=== PATIENT | female | born 1985 | race Caucasian/White ===

== ENCOUNTER 2017-04-05 17:46 | Emergency (ER) | payer OTHER ==
[~2017-04-05] VITALS: Ht 160 cm; Wt 58.0 kg
[2017-04-05 18:00] VITALS: BP 145/94; PULSE 84; TEMP 37; O2SAT 100; Ht 160 cm; Wt 58.0 kg
[2017-04-05] MEDS ORDERED: RABIES VACCINE (IMOVAX) HUMAN DIPL CELL 2.5 INTER.UNIT/ML SYR IM. ONE (18:15)
--- NOTE | 2017-04-05 18:16 | EMERGENCY ROOM VISIT NOTE ---
History Report prepared by Wade: Donta Greene Under the Supervision of: Dr. Alfredo Milner M.D. First contact with patient: 18:08 Chief Complaint: RABIES VACCINE Stated Complaint: EXPOSED TO RABID CAT History of Present Illness The patient is a 31 year old female who presents to the Emergency Room with a request for a rabies vaccination. 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 Today, she was working with a feral cat who was about to be adopted when she noticed that the cat was acting very strangely. She believed that the cat was suffering from symptoms of rabies. Upon euthanatizing the cat, it being rolling around and ended up scratching the patient. She has received a three series rabies vaccination in the past, but presents today to make sure she is immunized. Source of History: patient Onset: today Position: arm (bilateral) Symptom Intensity: mild Quality: other (Cat scratch) Timing: constant Note: She denies any other complaints. Review of Systems See HPI for pertinent positives & negatives. A total of 10 systems reviewed and were otherwise negative. Past Medical & Surgical No past medical history Family History Patient reports no known family medical history. Social History Smoking Status: Never Smoker Smokeless Tobacco Use: No Drug Use: none Occupation Status: employed Current/Historical Medications Scheduled Control Pills ( Control Pills), 1 TAB PO DAILY Cetirizine (Zyrtec), 10 MG PO QAM Fluticasone Propionate (Nasal) (Flonase Allergy Relief), 1 SPRAY NA DAILY Topiramate (Topamax), 50 MG PO DAILY Allergies Coded Allergies: Gabapentin (Unverified Allergy, Unknown, RASH, 04/05/17) Iodinated Diagnostic Agents (Unverified Allergy, Unknown, RASH, 04/05/17) Sulfa Antibiotics (Unverified Allergy, Unknown, RASH, 04/05/17) Physical Exam Vital Signs Date Time Temp Pulse Resp B/P (MAP) Pulse Ox O2 Delivery O2 Flow Rate FiO2 04/05/17 18:00 37.0 84 18 145/94 100 Physical Exam GENERAL: Patient is a healthy-appearing well-nourished female HEAD: Normocephalic atraumatic EYES: Ocular movements intact pupils equal and react to light OROPHARYNX mucous membranes are moist no exudates present no erythema or edema present NECK: Supple no nuchal rigidity CHEST: Good equal expansion LUNGS: Clear and equal to auscultation CARDIAC: Normal S1 and S2 ABDOMEN: Soft nontender no guarding BACK: No CVA tenderness EXTREMITIES: No pain upon palpation normal muscle strength in all groups no clubbing cyanosis or edema NEURO: Patient is following commands and answering questions appropriately. Alert and oriented x3 Cranial Nerves 2-12 grossly intact Medical Decision & Procedures Medications Administered Medications (Trade) Dose Ordered Sig/Kei Route Start Time Stop Time Status Last Admin Dose Admin Rabies Vaccine Human Diploid Cell (Imovax Rabies) 2.5 interunit ONCE ONCE IM. 04/05/17 18:15 04/05/17 18:16 DC 04/05/17 18:24 2.5 INTERUNIT ED Course 1807: Past medical records reviewed. The patient was evaluated in room A6. A complete history and physical examination was performed. 1814: Ordered Imovax Rabies 2.5 interunit IM 1829: Upon reexamination the patient is resting. I discussed results and treatment plan with the patient. She verbalizes agreement and understanding. The patient is ready for discharge. Medical Decision This is a 31-year-old female who presents emergency department after being scratched by a rabid cat. The wound was cleaned with soap and water. She was given Rabies Vaccine. She already has a rabies titer drawn that is appropriate. For this reason she will only need the rabies vaccine on days 0 and 3. Patient will return on day 3 and was in agreement with the treatment plan. Medication Reconcilliation Current Medication List: was personally reviewed by me Blood Pressure Screening Patient's blood pressure: Elevated blood pressure Blood pressure disposition: Elevated BP felt to be situational Impression Primary Impression: Need for rabies vaccination Scribe Attestation The scribe's documentation has been prepared under my direction and personally reviewed by me in its entirety. I confirm that the note above accurately reflects all work, treatment, procedures, and medical decision making performed by me. Departure Information Dispostion Home / Self-Care Referrals Jass Reno M.D.(MAX[facility]) Forms HOME CARE DOCUMENTATION FORM, IMPORTANT VISIT INFORMATION, WORK / SCHOOL INSTRUCTIONS Patient Instructions My [facility] Additional Instructions Today is Day 0, Return on Day 3 for additional Vaccine
[2017-04-05] MEDS ORDERED: FLUT0.15 (18:18)
[2017-04-05] MEDS ORDERED: TOPI50TA16 PO (18:18)
[2017-04-05] MEDS ORDERED: BCPILLS PO (18:18)
[2017-04-05] MEDS ORDERED: CETI10TA84 PO (18:18)
== END 2017-04-05 18:39 | disposition home or self-care (01) ==
LOC: C.EDB 17:48 → C.EDA 18:39
DX: Z23 Encounter for immunization (principal); Z20.3 Contact with and (suspected) exposure to rabies

== ENCOUNTER 2017-04-08 13:46 | Emergency (ER) | payer OTHER ==
[~2017-04-08] VITALS: Ht 160 cm; Wt 67.5 kg
[~2017-04-08 13:46] MED LIST: BCPILLS PO; CETI10TA84 PO; FLUT0.15; TOPI50TA16 PO
[2017-04-08 13:51] VITALS: TEMP 37.1; Ht 160 cm; Wt 67.5 kg
[2017-04-08] MEDS ORDERED: RABIES VACCINE (IMOVAX) HUMAN DIPL CELL 2.5 INTER.UNIT/ML SYR IM. ONE (14:00)
--- NOTE | 2017-04-08 14:32 | EMERGENCY ROOM VISIT NOTE ---
ED Visit Note First contact with patient: 13:56 Chief Complaint: Rabies Return Visit History of Present Illness: This patient is a 31-year-old female who presents to the Emergency Department for their final Rabies Vaccination Injections. The patient reports that they had no reaction to previous injection. Patient denies the development of any fevers, chills, sweats, or URI symptoms. Medications: Unchanged from previous visit. Allergies: Reviewed in chart PMH: Unchanged from previous visit. SHx: Lives at home. Denies tobacco, alcohol, recreational drug use. ROS: All pertinent positive and negative review of systems are appropriately documented in the History of Present Illness. Physical Exam: VITAL SIGNS - Vital signs and Nursing Notes were reviewed. GENERAL -pleasant and cooperative, well-developed, well-nourished, and in no acute distress. SKIN - Without rashes or lesions. CARDIAC - RRR with normal S1 & S2. No murmurs, rubs, or gallops appreciated. RESPIRATORY - Clear to auscultation bilaterally. No wheezes, rales, or rhonchi appreciated. NEURO - Patient is A&Ox3 and communicates appropriately with the provider. ED Course: Previous ED visit note was reviewed by myself prior to patient evaluation. Patient reports no reaction to the previous injection(s). Patient received Imovax intramuscularly. Patient was observed in the Emergency Department for greater than 20 minutes prior to discharge without signs of reaction. Patient was educated on worrisome symptoms for return visit to the Emergency Department. Patient discharged to home with the intent for follow-up in the Emergency Department as scheduled for the remainder of their injections. Current/Historical Medications Scheduled Control Pills ( Control Pills), 1 TAB PO DAILY Cetirizine (Zyrtec), 10 MG PO QAM Fluticasone Propionate (Nasal) (Flonase Allergy Relief), 1 SPRAY NA DAILY Topiramate (Topamax), 50 MG PO DAILY Allergies Coded Allergies: Gabapentin (Unverified Allergy, Unknown, RASH, 04/08/17) Iodinated Diagnostic Agents (Unverified Allergy, Unknown, RASH, 04/08/17) Sulfa Antibiotics (Unverified Allergy, Unknown, RASH, 04/08/17) Vital Signs Date Time Temp Pulse Resp B/P (MAP) Pulse Ox O2 Delivery O2 Flow Rate FiO2 04/08/17 14:40 81 16 121/72 100 04/08/17 13:51 37.1 91 15 118/81 98 Room Air Medications Administered Medications (Trade) Dose Ordered Sig/Kei Route Start Time Stop Time Status Last Admin Dose Admin Rabies Vaccine Human Diploid Cell (Imovax Rabies) 2.5 interunit ONCE ONCE IM. 04/08/17 14:00 04/08/17 14:01 DC 04/08/17 14:03 2.5 INTERUNIT Departure Information Impression Primary Impression: Encounter for repeat administration of rabies vaccination Dispostion Home / Self-Care Condition GOOD Referrals Jass Reno M.D.(MAXI) (PCP) Patient Instructions My [facility] Additional Instructions You were seen in the Emergency Department today for completion of your Rabies Prophylaxis. Follow-up with your PCP as needed.
[2017-04-08 14:40] VITALS: BP 121/72; PULSE 81; O2SAT 100
== END 2017-04-08 14:41 | disposition home or self-care (01) ==
LOC: C.EDB 13:47 → C.EDD 14:41
DX: Z20.3 Contact with and (suspected) exposure to rabies (principal); Z23 Encounter for immunization

== ENCOUNTER 2017-10-14 19:41 | Emergency (ER) | payer OTHER ==
[~2017-10-14] VITALS: Ht 160 cm; Wt 58.2 kg
[2017-10-14 19:46] VITALS: TEMP 37.4; Ht 160 cm; Wt 58.2 kg
--- NOTE | 2017-10-14 21:07 | EMERGENCY ROOM VISIT NOTE ---
History Report prepared by Wade: Reed Calero Under the Supervision of: Dr. Lu Serra D.O. First contact with patient: 20:51 Chief Complaint: ABDOMINAL PAIN Stated Complaint: SEVERE STOMACH PAIN Nursing Triage Summary: pt c/o abd pain for past 2 days, used mag citrate yesterday, started with low grade fever last night then vomited this morning History of Present Illness The patient is a 31 year old female who presents to the Emergency Room with complaints of waxing and waning, sharp, center abdominal pain beginning yesterday at 0300. The patient states that she felt bloated and felt like she was constipated when her symptoms began. She notes that she took magnesium citrate with some relief of her symptoms. She reports that her bloating is better but that she is still experiencing abdominal pain. She also complains of nausea, vomiting, and a low grade fever that reached a high of 100. The patient states that her symptoms worsen with movement and eating. She notes that she is not able to pass any gas but can hear "gurgling in her stomach when she moves." She denies any urinary symptoms, recent travel, and changes to her menstrual periods as she has an IUD placed. She reports that she does not have a history of GI problems but states that her dad has a history of diverticulitis. Source of History: patient Onset: yesterday at 0300 Position: abdomen Quality: sharp, other (bloating) Timing: waxes/wanes Modifying Factors (Worsening): eating, movement Modifying Factors (Relieving): other (magnesium citrate) Associated Symptoms: + fevers (high of 100), + nausea, + vomiting, No urinary symptoms Review of Systems See HPI for pertinent positives & negatives. A total of 10 systems reviewed and were otherwise negative. Past Medical & Surgical Medical Problems: (1) Scoliosis Social History Problems: (1) IUD (intrauterine device) in place Family History FHx: cancer FHx: diverticulitis Heart disease Hypertension Social History Smoking Status: Never Smoker Drug Use: none Marital Status: Housing Status: lives with family Occupation Status: employed Current/Historical Medications Scheduled Control Pills ( Control Pills), 1 TAB PO DAILY Cetirizine (Zyrtec), 10 MG PO QAM Dicyclomine Hcl (Bentyl), 20 MG PO Q8 Escitalopram Oxalate (Lexapro), 20 MG PO DAILY Ondasetron Odt (Zofran Odt), 4 MG SL Q8 Topiramate (Topamax), 50 MG PO DAILY Allergies Coded Allergies: Gabapentin (Unverified Allergy, Unknown, RASH, 10/15/17) Iodinated Diagnostic Agents (Unverified Allergy, Unknown, RASH, 10/15/17) Sulfa Antibiotics (Unverified Allergy, Unknown, RASH, 10/15/17) Uncoded Allergies: AJ (Allergy, Unknown, rash, 10/14/17) Physical Exam Vital Signs Date Time Temp Pulse Resp B/P (MAP) Pulse Ox O2 Delivery O2 Flow Rate FiO2 10/15/17 01:01 80 18 114/63 98 Room Air 10/14/17 23:37 99 18 130/95 96 Room Air 10/14/17 22:30 73 15 117/95 100 Room Air 10/14/17 22:00 74 16 124/86 99 Room Air 10/14/17 21:31 114/86 10/14/17 21:30 93 16 99 Room Air 10/14/17 21:30 84 10/14/17 21:19 75 16 114/86 100 Room Air 10/14/17 19:46 37.4 118 18 136/85 99 Room Air Physical Exam GENERAL: alert, well appearing, well nourished, no distress, non-toxic EYE EXAM: normal conjunctiva, PERRL and EOM's grossly intact OROPHARYNX: no exudate, no erythema, lips, buccal mucosa, and tongue normal and mucous membranes are moist NECK: supple, no nuchal rigidity, no adenopathy, non-tender LUNGS: Clear to auscultation. Normal chest wall mechanics HEART: no murmurs, S1 normal and S2 normal ABDOMEN: abdomen soft, normo-active bowel sounds, no masses, no rebound or guarding, mild periumbilical tenderness. BACK: Back is symmetrical on inspection and there is no deformity, no midline tenderness, no CVA tenderness. SKIN: no rashes and no bruising UPPER EXTREMITIES: upper extremities are grossly normal. LOWER EXTREMITIES: No pitting edema. NEURO EXAM: Normal sensorium, cranial nerves II-XII grossly intact, normal speech, no gross weakness of arms, no gross weakness of legs. Medical Decision & Procedures ER Provider Diagnostic Interpretation: Radiology results have been interpreted by the radiologist and reviewed by me. ABDOMEN 2VIEW W/PA CHEST RTN FINDINGS: Surgical clips project over the lower thorax. Cardiomediastinal silhouette normal. No focal opacity. No large effusion or pneumothorax. Mild focal colonic wall thickening suggested at the level of the distal descending colon. Nonobstructive bowel gas pattern. No gross pneumoperitoneum. Allowing for bowel gas and stool, no calcifications to suggest nephrolithiasis. Intrauterine device in place. Extensive thoracolumbar fusion hardware. Scoliotic curvature of the thoracolumbar spine. Absent or gracile right sixth rib. IMPRESSION: 1. No acute cardiopulmonary disease. 2. Focal wall thickening suggested at the distal descending colon. This could suggest colitis. This could be further evaluated with CT if clinically indicated. Electronically signed by: Kiran Mendoza M.D. 10/14/2017 9:[address] ABDOMEN & PELVIS Without Contrast: Impression: Enlarged right kidney with hydronephrosis, potentially secondary to a punctate right distal ureteral stone. However, evaluation is degraded by extensive streak artifact related to spinal hardware and noncontrast technique. The appendix is not clearly delineated. No evidence of bowel obstruction. Findings: Extensive streak artifact related to spinal hardware. There is a questionable right distal ureteral punctate stone versus phlebolith ( image 69). Uterine contraceptive device. No evidence of bowel obstruction. The appendix is clearly delineated. No acute osseous abnormality. Laboratory Results 10/14/17 21:19 Red Blood Count 4.73, Mean Corpuscular Volume 85.4, Mean Corpuscular Hemoglobin 30.0, Mean Corpuscular Hemoglobin Concent 35.1, Mean Platelet Volume 9.8, Neutrophils (%) (Auto) 75.1, Lymphocytes (%) (Auto) 16.5, Monocytes (%) (Auto) 7.9, Eosinophils (%) (Auto) 0.1, Basophils (%) (Auto) 0.1, Neutrophils # (Auto) 7.98, Lymphocytes # (Auto) 1.75, Monocytes # (Auto) 0.84, Eosinophils # (Auto) 0.01, Basophils # (Auto) 0.01 10/14/17 21:19 Test 10/14/17 21:19 White Blood Count 10.62 K/uL (4.8-10.8) Red Blood Count 4.73 M/uL (4.2-5.4) Hemoglobin 14.2 g/dL (12.0-16.0) Hematocrit 40.4 % (37-47) Mean Corpuscular Volume 85.4 fL (80-100) Mean Corpuscular Hemoglobin 30.0 pg (25-34) Mean Corpuscular Hemoglobin Concent 35.1 g/dl (32-36) Platelet Count 229 K/uL (130-400) Mean Platelet Volume 9.8 fL (7.4-10.4) Neutrophils (%) (Auto) 75.1 % Lymphocytes (%) (Auto) 16.5 % Monocytes (%) (Auto) 7.9 % Eosinophils (%) (Auto) 0.1 % Basophils (%) (Auto) 0.1 % Neutrophils # (Auto) 7.98 K/uL (1.4-6.5) Lymphocytes # (Auto) 1.75 K/uL (1.2-3.4) Monocytes # (Auto) 0.84 K/uL (0.11-0.59) Eosinophils # (Auto) 0.01 K/uL (0-0.5) Basophils # (Auto) 0.01 K/uL (0-0.2) RDW Standard Deviation 37.0 fL (36.4-46.3) RDW Coefficient of Variation 11.9 % (11.5-14.5) Immature Granulocyte % (Auto) 0.3 % Immature Granulocyte # (Auto) 0.03 K/uL (0.00-0.02) Urine Color DK YELLOW Urine Appearance CLOUDY (CLEAR) Urine pH 5.5 (4.5-7.5) Urine Specific [place] 1.025 (1.000-1.030) Urine Protein NEG (NEG) Urine Glucose (UA) NEG (NEG) Urine Ketones 3+ (NEG) Urine Occult Blood 2+ (NEG) Urine Nitrite NEG (NEG) Urine Bilirubin NEG (NEG) Urine Urobilinogen NEG (NEG) Urine Leukocyte Esterase SMALL (NEG) Urine WBC (Auto) 10-30 /hpf (0-5) Urine RBC (Auto) 10-30 /hpf (0-4) Urine Hyaline Casts (Auto) 5-10 /lpf (0-5) Urine Epithelial Cells (Auto) >30 /lpf (0-5) Urine Bacteria (Auto) 1+ (NEG) Anion Gap 9.0 mmol/L (3-11) Est Creatinine Clear Calc Drug Dose 46.1 ml/min Estimated GFR () 55.1 Estimated GFR (Non- 47.5 BUN/Creatinine Ratio 12.1 (10-20) Calcium Level 9.0 mg/dl (8.5-10.1) Magnesium Level 2.4 mg/dl (1.8-2.4) Total Bilirubin 1.2 mg/dl (0.2-1) Aspartate Amino Transf (AST/SGOT) 20 U/L (15-37) Alanine Aminotransferase (ALT/SGPT) 31 U/L (12-78) Alkaline Phosphatase 82 U/L (45-117) Total Protein 7.7 gm/dl (6.4-8.2) Albumin 4.3 gm/dl (3.4-5.0) Globulin 3.4 gm/dl (2.5-4.0) Albumin/Globulin Ratio 1.3 (0.9-2) Lipase 66 U/L (73-393) Human Chorionic Gonadotropin, Qual NEG (NEG) Laboratory results per my review. Medications Administered Medications (Trade) Dose Ordered Sig/Kei Route Start Time Stop Time Status Last Admin Dose Admin Ketorolac Tromethamine (Toradol Inj) 30 mg NOW STAT IV 10/14/17 23:49 10/14/17 23:50 DC 10/14/17 23:53 30 MG Ondansetron HCl (ZOFRAN ODT 4MG Home Pack) 1 homepack UD ONCE PO 10/15/17 01:30 10/15/17 01:31 DC 10/15/17 01:32 1 HOMEPACK ED Course 2100: The patient was evaluated in room B12. A complete history and physical exam was performed. 2314: I reevaluated and updated the patient. 2349: Toradol 30mg IV 0037: I rechecked the patient. 0113: Upon reevaluation, the patient is feeling better. I discussed the findings and the treatment plan with the patient. She verbalizes agreement and understanding. The patient was discharged home. Medical Decision Differential diagnosis: Etiologies such as appendicitis, diverticulitis, PUD, biliary pathology, UTI, pancreatitis, obstruction, mesenteric ischemia, aortic pathology, infections, inflammatory bowel disease, renal colic, as well as others were entertained. Discussed with patient all results here. Patient with no vomiting or diarrhea while here. Patient afebrile. Patient's labs reassuring. Discussed imaging results with her as well as suggestion of possible stone. While patient's presentation not classic for ureterolithiasis or renal colic, given hematuria, discussed with patient that that is still a possibility. Patient with no prior history of kidney stones. Patient has an IUD and does not get regular menstrual cycles but has not noted any recent spotting to suggest vaginal contaminant of her urinalysis specimen. Specimen otherwise does not appear infected. I do not suspect other infection. Patient specimen was suboptimal. Patient with mild renal dysfunction noted compared to prior, discussed close follow-up with family doctor to have this rechecked and continued hydration. Patient well-appearing here throughout, vital signs stable. Patient felt improved following medication. Discussed with her symptoms to watch and return for, symptomatic treatment, close follow-up with family doctor as a precaution, she verbalized understanding was agreeable with plan. Medication Reconcilliation Current Medication List: was personally reviewed by me Blood Pressure Screening Patient's blood pressure: Normal blood pressure Blood pressure disposition: Did not require urgent referral Impression Primary Impression: Abdominal pain Additional Impression: Hematuria Scribe Attestation The scribe's documentation has been prepared under my direction and personally reviewed by me in its entirety. I confirm that the note above accurately reflects all work, treatment, procedures, and medical decision making performed by me. Departure Information Dispostion Home / Self-Care Prescriptions Dicyclomine Hcl (BENTYL) 10 Mg Cap 20 MG PO Q8 for Pain, #30 CAP Prov: Lu Serra, DO 10/15/17 Ondasetron Odt (ZOFRAN ODT) 4 Mg Tab 4 MG SL Q8 for Nausea, #20 TAB Prov: Lu Serra, DO 10/15/17 Referrals Jass Reno M.D.(MAXI) (PCP) Forms Call Back Authorization, HOME CARE DOCUMENTATION FORM, IMPORTANT VISIT INFORMATION Patient Instructions My [facility] Additional Instructions Please sip clear liquids and frequent intervals to stay well-hydrated, this should primarily be water. May use the nausea medication and bowel spasm medication as prescribed. You may use Tylenol and ibuprofen as needed. Do not take ibuprofen on an empty stomach. Please continue to monitor for any changing symptoms. If you develop worsening pain, noticed blood in your urine, worsening diarrhea, lack or bloody stools, persistent vomiting, fevers or chills , or you have any other new concerns, please return the emergency room. Please have your family doctor recheck your urine in the office to assure that the blood has cleared. If you have persistent blood in your urine you may need additional evaluation by urology. Problem Qualifiers Primary Impression: Abdominal pain Abdominal location: periumbilical Qualified Codes: R10.33 - Periumbilical pain Additional Impression: Hematuria Hematuria type: unspecified type Qualified Codes: R31.9 - Hematuria, unspecified
[2017-10-14 21:38] LABS: BASO % 0.1 %; BASO ABS # 0.01 K/uL (0-0.2); EOS % 0.1 %; EOS ABS # 0.01 K/uL (0-0.5); HEMATOCRIT 40.4 % (37-47); HEMOGLOBIN 14.2 g/dL (12.0-16.0); IG# 0.03 K/uL (0.00-0.02); LYMPH % 16.5 %; LYMPH ABS # 1.75 K/uL (1.2-3.4); MEAN CELL VOLUME 85.4 fL (80-100); MEAN CORPUSCULAR HGB CONC 35.1 g/dl (32-36); MEAN PLATELET VOLUME 9.8 fL (7.4-10.4); MONO % 7.9 %; MONO ABS # 0.84 K/uL (0.11-0.59); NEUT % 75.1 %; NEUT ABS # 7.98 K/uL (1.4-6.5); PLATELET COUNT 229 K/uL (130-400); RED CELL DISTRIBUTION WIDTH CV 11.9 % (11.5-14.5); WHITE BLOOD COUNT 10.62 K/uL (4.8-10.8)
--- NOTE | 2017-10-14 21:58 | DIAGNOSTIC IMAGING REPORT ---
ABDOMEN 2VIEW W/PA CHEST RTN CLINICAL HISTORY: 31 years-old Female presenting with abd pain. TECHNIQUE: PA view of the chest and supine and upright views of the abdomen were obtained. COMPARISON: None. FINDINGS: Surgical clips project over the lower thorax. Cardiomediastinal silhouette normal. No focal opacity. No large effusion or pneumothorax. Mild focal colonic wall thickening suggested at the level of the distal descending colon. Nonobstructive bowel gas pattern. No gross pneumoperitoneum. Allowing for bowel gas and stool, no calcifications to suggest nephrolithiasis. Intrauterine device in place. Extensive thoracolumbar fusion hardware. Scoliotic curvature of the thoracolumbar spine. Absent or gracile right sixth rib. IMPRESSION: 1. No acute cardiopulmonary disease. 2. Focal wall thickening suggested at the distal descending colon. This could suggest colitis. This could be further evaluated with CT if clinically indicated. Electronically signed by: Kiran Mendoza M.D. 10/14/2017 9:56 PM Dictated Date/Time: 10/14/2017 9:54 PM
[2017-10-14 22:03] LABS: ALBUMIN 4.3 gm/dl (3.4-5.0); CREATININE 1.45 mg/dl (0.60-1.20); POTASSIUM 3.3 mmol/L (3.5-5.1)
[2017-10-14 22:06] LABS: TOTAL PROTEIN 7.7 gm/dl (6.4-8.2)
[2017-10-14] MEDS ORDERED: KETOROLAC TROMETHAMINE 30 MG/ML VIAL IV STA (23:49)
[2017-10-15] MEDS ORDERED: ESCI1TAB10 PO (00:59)
[2017-10-15 01:01] VITALS: BP 114/63; PULSE 80; O2SAT 98
[2017-10-15] MEDS ORDERED: DICY10CA55 PO (01:12)
[2017-10-15] MEDS ORDERED: ONDA4TAB10 SL (01:12)
[2017-10-15] MEDS ORDERED: ONDANSETRON HOME PACK 4MG OD TAB ONE (01:26)
[2017-10-15] MEDS ORDERED: ONDANSETRON HOME PACK 4MG OD TAB PO ONE (01:30)
--- NOTE | 2017-10-15 06:27 | DIAGNOSTIC IMAGING REPORT ---
CT SCAN OF THE ABDOMEN AND PELVIS WITHOUT CONTRAST CLINICAL HISTORY: Generalized abdominal pain ABNORMAL CONVENTIONAL RADIOGRAPHIC STUDY. COMPARISON STUDY: Conventional radiographic study dated 10/14/2017 TECHNIQUE: CT scan of the abdomen and pelvis was performed from the lung bases to the proximal femurs. Images are reviewed in the axial, sagittal, and coronal planes. IV contrast was not administered for this examination. A dose lowering technique was utilized adhering to the principles of ALARA. CT DOSE: 275.57 mGy.cm FINDINGS: Lower chest: The heart is normal in size and configuration, without pericardial effusion. The lung bases and pleural spaces are clear. Liver: The unenhanced liver is normal in size, contour, and attenuation. There is no intrahepatic biliary ductal dilatation. Gallbladder: Unremarkable. Spleen: Normal in size and attenuation. Pancreas: Partially obscured secondary to artifact from metallic hardware within the spine Adrenal glands: Unremarkable. Kidneys: There is right-sided hydronephrosis and right-sided perinephric edema. There is a 2.5 mm distal right ureteral calculus. Bowel: There are no transition zones to indicate bowel obstruction. There are scattered air-fluid levels within the colon. There are no findings to indicate acute diverticulitis. The appendix appears normal as visualized. Peritoneum: There is a small amount of free fluid within the pelvis. No free air is visualized. Vasculature: The abdominal aorta is normal in course and caliber. Adenopathy: None. Pelvic viscera: An IUD is visualized within the uterus. Skeletal structures: Is a scoliosis with thoracolumbar abdominal spinal rodding. IMPRESSION: 1. 2.5 mm distal right ureteral calculus with secondary obstructive changes 2. No evidence of bowel obstruction. No evidence of free air 3. Significant artifact secondary to spinal rodding Electronically signed by: Lorenzo Elizondo M.D. 10/15/2017 6:26 AM Dictated Date/Time: 10/15/2017 6:21 AM
== END 2017-10-15 01:30 | disposition home or self-care (01) ==
LOC: C.EDB 19:42
DX: R10.33 Periumbilical pain (principal); R31.9 Hematuria, unspecified; M41.9 Scoliosis, unspecified; Z88.8 Allergy status to other drugs, medicaments and biological substances

== ENCOUNTER 2023-09-23 06:56 | Observation (INO) ==
[2023-09-23] MEDS: MoRPHine SULFATE 4 MG/ML 1 ML CARP\\VIAL IV STA ×2 (07:29→08:30)
[2023-09-23] MEDS: ONDANSETRON INJ 2 MG/ML 2 ML VIAL IV STA (07:29)
--- NOTE | 2023-09-23 07:36 | Emergency Department Note ---
Impression & Plan Closed fracture of left tibia and fibula ED Provider Note CHIEF COMPLAINT: Left ankle injury 90 minutes ago HISTORY OF PRESENT ILLNESS: Patient is a 37-year-old female with past medical history significant for migraine disorder, allergic rhinitis, depression/anxiety, among other chronic medical problems who presents to the emergency department for evaluation of a left lower leg injury. Incident occurred at home about 90 minutes ago. She reports that she was working with her horse in the barn, she gave the animal a shot, and the horse fell, landing on her left lower leg. She reports immediate onset of pain and instability in the left lower leg/ankle region. She tried to put some pressure on the leg but she could not. She unfortunately did not have her phone with her and had to crawl from the barn to the house to get her spouse. She essentially then came directly to the emergency department. She has not had any medication for pain which she rates a 9/10. She reports the pain is in the left lower tib/fib region and into the ankle. She reports that she can move her toes. Denies any numbness or tingling into the low left lower leg. No other injuries noted. REVIEW OF SYSTEMS: Review of systems as per HPI. All other systems reviewed were negative. 10 systems reviewed. PMH: External medical records are reviewed and summarized as above/below. See Problem List. SOCIAL HISTORY: Patient lives at home with her family. PHYSICAL EXAM: Vital Signs: Reviewed Nurses' notes. MENTAL STATUS: Pleasant, well-appearing, obviously uncomfortable 37-year-old female laying on the gurney. MUSCULOSKELETAL: Examination of the left lower extremity does not reveal any obvious deformity. No significant soft tissue swelling or ecchymosis noted. Skin is intact. There is no pain over the left knee or the proximal fibular head. Palpation down the left lower leg, in the midportion does elicit some fracture crepitus and tenderness to palpation. She is tender about the medial and the lateral malleolus as well. Mild lateral soft tissue swelling of the ankle noted. No pain in the foot over the calcaneus. She can wiggle and move her toes. Sensation to light touch is intact. Dorsalis pedis and posterior tibialis pulses are easily palpable. EMERGENCY DEPARTMENT COURSE: The patient was seen and assessed as above. External medical records are reviewed. She presents to the emergency department for evaluation of left lower leg injury after a horse fell on her. Nursing staff were able to use trauma shawn to cut off her muck boot. IV lock needed. CBC, BMP, coags and serum hCG were collected. She was treated with morphine and Zofran IV. Ice packs were applied. Left tib-fib x-rays were obtained. Laboratory studies per my interpretation note 11,000 white count, no anemia, no coagulopathy, no electrolyte imbalance, test negative. X-rays of the left tib-fib per my interpretation note oblique fractures of the distal tibia and fibula, as well as fractures of both the medial malleolus and the distal fibula. X-ray findings reviewed with the patient. She did receive an additional morphine 4 mg IV after x-ray. Consultation was placed with Dr. Amaya with [facility]. The patient was seen and assessed by LING Jauregui PA-C with orthopedics, please refer to his consultation for further information. He applied Ortho-Glass splint to the left lower leg. Plan is for surgical intervention with Dr. Amaya later this afternoon. The patient rested comfortably and remained stable in the ED pending the OR. Differential diagnoses entertained included fracture, sprain, contusion, dislocation, nerve, vascular or tendinous injury, compartment syndrome, among others. Past Med/Surg History Medical History Migraine without aura and without status migrainosus, not intractable Allergic rhinitis due to other allergen Psoriasis Raynaud's disease without gangrene Sicca syndrome with keratoconjunctivitis Surgical History H/O wisdom tooth extraction S/P spinal surgery Family History Mother Arthritis Raynauds syndrome Brother Scoliosis Social History Smoking Status: Never smoker Hx Alcohol Use: No Hx Substance Use: No Feels Safe at Home: Yes Allergies Allergies Allergy/AdvReac Type Severity Reaction Status Date / Time gabapentin Allergy Unknown RASH Verified 09/23/23 11:55 Iodinated Contrast Media Allergy Unknown RASH Verified 09/23/23 11:55 Sulfa (Sulfonamide Allergy Unknown RASH Verified 09/23/23 11:55 Antibiotics) AJ Allergy Unknown rash Uncoded 10/14/17 19:48 Home Meds Home Medications Medication Instructions Recorded Confirmed cetirizine 10 mg tablet (Zyrtec) 10 mg PO DAILY PRN 07/24/19 escitalopram oxalate 20 mg tablet 20 mg PO DAILY 07/24/19 fluticasone propionate 50 2 sprays intranasal DAILY 07/24/19 mcg/actuation nasal spray,suspension levonorgestrel 17.5 mcg/24 hrs intrauterine 07/24/19 (5yrs) 19.5mg intrauterine device (Kyleena) tizanidine 4 mg capsule 2 mg PO BID 07/24/19 Results & Data (ED) Vital Signs Vital Signs - 24 hr 09/23/23 07:03 09/23/23 11:46 09/23/23 11:58 Temperature 36 C L 36.4 C L Temperature Source Temporal Artery Scan Oral Pulse Rate 108 H Pulse Rate [Apical] 83 Pulse Rhythm [Apical] Regular Respiratory Rate 18 20 Respiratory Effort / Characteristics Non-Labored Non-Labored Spontaneous Normal for Patient Respiratory Depth Normal Normal Respiratory Pattern Regular Regular Blood Pressure 128/91 Blood Pressure [Right Arm] 117/73 Blood Pressure Mean 103 Blood Pressure Mean [Right Arm] 87 Blood Pressure Position [Right Arm] Semi-fowlers Pulse Oximetry 100 99 Oxygen Delivery Method Room Air Room Air Room Air Sepsis Recent Fever Within 48 Hours No Sepsis New/Unexplained Change in Mental Status N/A Sepsis Action Taken by Nursing No Action Required Home Medications Current Medication List: was personally reviewed by me Laboratory Data Attestation: I reviewed the patient's lab results. 09/23/23 07:30 09/23/23 07:30 Lab Results 09/23/23 Range/Units 07:30 WBC 11.53 H (4.8-10.8) K/ul RBC 4.92 (4.20-5.40) M/uL Hgb 13.9 (12.0-16.0) g/dl Hct 41.7 (37.0-47.0) % MCV 84.8 (80.0-100.0) fL MCH 28.3 (25.0-34.0) pg MCHC 33.3 (32.0-36.0) g/dL RDW Std Deviation 35.7 L (36.4-46.3) fL RDW Coeff of Kayla 11.6 (11.5-14.5) % Plt Count 252 (130-400) K/uL MPV 10.2 (9.4-12.4) fL PT 11.2 (9.0-12.0) Seconds INR 1.0 (0.9-1.1) APTT 24 (21-31) Seconds PTT Ratio 0.9 Sodium 139 (136-145) mmol/L Potassium 3.6 (3.5-5.1) mmol/L Chloride 109 H (98-107) mmol/L Carbon Dioxide 25 (21-32) mmol/L Anion Gap 5 (3-11) BUN 13 (6-23) mg/dl Creatinine 0.77 (0.6-1.2) mg/dl Est Cr Clr Drug Dosing 93.0 ml/min Est GFR ( Amer) 113.5 ml/min Est GFR (Non-Af Amer) 97.9 ml/min BUN/Creatinine Ratio 16.9 (10-20) Glucose 97 (70-99(Fasting)) mg/dl Calcium 8.6 (8.6-10.3) mg/dl HCG, Qual Negative (Negative) Administered Medications Sodium Chloride (Nss) 1,000 mls @ 15 mls/hr IV .Q24H MARTINE Stop: 10/23/23 09:59 Last Admin: 09/23/23 10:13 Dose: 15 mls/hr Documented By: JADE Cefazolin Sodium (Ancef 2000mg) 2,000 mg in 15 mls @ 3.75 mls/min IV PREOP MARTINE; Protocol Stop: 09/24/23 05:59 Last Admin: 09/23/23 12:28 Dose: 3.75 mls/min Documented By: ANGUS Lactated Ringer's (Lr) 1,000 mls @ 15 mls/hr IV .Q24H MARTINE Stop: 10/23/23 11:59 Last Infusion: 09/23/23 12:25 Dose: Infused Documented By: HBTarun Admin: 09/23/23 12:06 Dose: 15 mls/hr Documented By: PEGGY Discontinued Medications Acetaminophen (Acetaminophen 1000 Mg/100 Ml Iv) Confirm Administered Dose 1,000 mg IV .STK-MED ONE Stop: 09/23/23 10:01 Last Admin: 09/23/23 10:04 Dose: Not Given Documented By: JADE Cefazolin Sodium (Cefazolin 2,000 Mg/15 Ml Iv Push) Confirm Administered Dose 2,000 mg IV .STK-MED ONE Stop: 09/23/23 12:09 Last Admin: 09/23/23 13:40 Dose: Not Given Documented By: JEZ Hydromorphone HCl (Hydromorphone Inj 1 Mg/Ml Syringe) 1 mg IV NOW STA Stop: 09/23/23 09:57 Last Admin: 09/23/23 10:03 Dose: Not Given Documented By: JADE Hydromorphone HCl (Hydromorphone Inj 1 Mg/Ml Syringe) Confirm Administered Dose 1 mg .ROUTE .STK-MED ONE Stop: 09/23/23 10:01 Last Admin: 09/23/23 10:03 Dose: 1 mg Documented By: JADE Acetaminophen (Ofirmev) 1,000 mg in 100 mls @ 400 mls/hr IV NOW STA Stop: 09/23/23 10:10 Last Infusion: 09/23/23 10:03 Dose: Infused Documented By: Admin: 09/23/23 10:03 Dose: 400 mls/hr Documented By: JADE Morphine Sulfate (Morphine Sulfate 4 Mg/Ml 1 Ml Carp\Vial) 4 mg IV NOW STA Stop: 09/23/23 07:18 Last Admin: 09/23/23 07:29 Dose: 4 mg Documented By: JADE Morphine Sulfate (Morphine Sulfate 4 Mg/Ml 1 Ml Carp\Vial) 4 mg IV NOW STA Stop: 09/23/23 08:25 Last Admin: 09/23/23 08:30 Dose: 4 mg Documented By: JADE Ondansetron HCl (Ondansetron Inj 2 Mg/Ml 2 Ml Vial) 4 mg IV NOW STA Stop: 09/23/23 07:18 Last Admin: 09/23/23 07:29 Dose: 4 mg Documented By: JADE Imaging Data Attestation: I personally reviewed and interpreted this imaging study as follows: Radiologist's Impression: Tibia/Fibula X-Ray 09/23/23 07:17 XR tibia fibula LT 2V CLINICAL HISTORY: EVAL FRACTURE. Left lower leg pain. Injury. COMPARISON STUDY: None. FINDINGS: The proximal tibia and proximal fibula are intact. There are slightly comminuted oblique fractures involving the distal shafts of the left tibia and fibula. There is nondisplaced fracture intra-articular fracture within the distal tibia at the medial malleolus. There is also a small slightly comminuted fractures at the distal tip of the left fibula. Soft tissue swelling within the distal left lower leg/ankle. There is medial and lateral displacement of the distal shaft fractures as well as mild posterior angulation. These fractures demonstrate up to 1 cm of posterior displacement. No dislocation at the ankle. No metallic foreign bodies. IMPRESSION: Displaced fractures involving the distal tibia and fibula as described above. ACT 112: Negative or not required by law. Electronically signed by: Fox Shelton M.D. 09/23/2023 8:48 AM Ankle X-Ray 09/23/23 09:50 XR ankle LT 2V CLINICAL HISTORY: displaced tib/fib fx COMPARISON: Left tibia and fibula radiographs performed earlier today. FINDINGS: Note is again made of an acute mildly displaced comminuted oblique fracture of the mid to distal diaphysis of the left tibia. Fracture is displaced 1.6 cm. There is also a displaced fracture of the distal diaphysis of the left fibula. Fracture is displaced 0.9 cm. Minimally displaced fracture of the fibular tip is again noted. There is no ankle mortise widening. Talar dome is intact. No acute fractures within the left hindfoot are identified. IMPRESSION: Acute displaced left tibial and fibular fractures, as described above. ACT 112: Negative or not required by law. Electronically signed by: Mikel Artis M.D. 09/23/2023 10:24 AM Discharge Plan Visit Data Chief Complaint: Leg Injury/Pain Stated Complaint: HORSE FELL ON LEFT LEG ED Provider: Sharon Meng ED Midlevel Provider: Pradip Falcon Discharge Problem: Closed fracture of left tibia and fibula Patient Disposition: Being Evaluated by Surgeon Discharge Instructions Interventions: ED Discharge Assessment Last Done: 09/23/23 11:46 Forms Stand Alone Forms: My [facility] Prescriptions Prescriptions: No Action escitalopram oxalate 20 mg tablet 20 mg PO DAILY fluticasone propionate 50 mcg/actuation spray,suspension 2 sprays INTNAS DAILY tizanidine 4 mg capsule 2 mg PO BID cetirizine [Zyrtec] 10 mg tablet 10 mg PO DAILY PRN Kyleena 17.5 mcg/24 hrs (5 yrs) 19.5 mg intrauterine device IU Referrals Referrals: Stephy Hendrickson DO [Outside Practitioners] -
[2023-09-23 07:50] LABS: Hematocrit (blood only) 41.7 % (37.0-47.0); Hemoglobin 13.9 g/dl (12.0-16.0); Mean Corpuscular Hemoglobin 28.3 pg (25.0-34.0); Mean Corpuscular Hgb Conc 33.3 g/dL (32.0-36.0); Mean Corpuscular Volume 84.8 fL (80.0-100.0); Mean Platelet Volume 10.2 fL (9.4-12.4); Platelet Count 252 K/uL (130-400); RDW Coefficient of Variation 11.6 % (11.5-14.5); RDW Standard Deviation 35.7 fL (36.4-46.3); Red Blood Count 4.92 M/uL (4.20-5.40); White Blood Count 11.53 K/ul (4.8-10.8)
[2023-09-23 08:00] LABS: Pregnancy Test, Serum Negative (Negative)
[2023-09-23 08:09] LABS: BUN Creatinine Ratio 16.9 (10-20); Calcium 8.6 mg/dl (8.6-10.3); Est GFR (African American) 113.5 ml/min; Est GFR (Non-African American) 97.9 ml/min; Potassium 3.6 mmol/L (3.5-5.1)
[2023-09-23 08:17] LABS: Partial Thromboplastin Ratio 0.9; Partial Thromboplastin Time 24 Seconds (21-31); Prothrombin Time 11.2 Seconds (9.0-12.0)
--- NOTE | 2023-09-23 08:49 | XRay Report ---
XR tibia fibula LT 2V CLINICAL HISTORY: EVAL FRACTURE. Left lower leg pain. Injury. COMPARISON STUDY: None. FINDINGS: The proximal tibia and proximal fibula are intact. There are slightly comminuted oblique fr actures involving the distal shafts of the left tibia and fibula. There is nondisplaced fracture intr a-articular fracture within the distal tibia at the medial malleolus. There is also a small slightly comminuted fractures at the distal tip of the left fibula. Soft tissue swelling within the distal lef t lower leg/ankle. There is medial and lateral displacement of the distal shaft fractures as well as mild posterior angulation. These fractures demonstrate up to 1 cm of posterior displacement. No dislo cation at the ankle. No metallic foreign bodies. IMPRESSION: Displaced fractures involving the distal tibia and fibula as described above. ACT 112: Negative or not required by law. Electronically signed by: Fox Shelton M.D. 09/23/2023 8:48 AM
--- NOTE | 2023-09-23 09:31 | Orthopedic Consultation ---
Date of Consultation September 23, 2023 Assessment & Plan (1) Fracture of left tibia and fibula: Patient is n.p.o. Relayed information to Dr. Amaya OR booked for today by Dr. Amaya Splint placed Consent on chart IV Tylenol and Dilaudid given prior to splint placement NV intact before and after splint application. Preop orders placed Present on Admission?: Yes Supervising Physician Co-Signing Physician Notes I Dr. Amaya, saw and examined the patient and agree with the above findings and plan of care I developed and discussed with my PA. CC: LLE pain HPI: 37 yo female had her horse fall over onto her LLE this am. Unable to bare weight. Brought to ED, X-rays were obtained showing displaced L Tib/fib fractures. I was consulted for further evaluation and treatment. PE: LLE splint in place. Able to wiggle toes, sensation to light touch intact distally. BCR < 2 sec.. Calf soft and non-tender. Lungs: Breathing easily Heart: RRR RADIOGRAPH: XR ankle LT 2V CLINICAL HISTORY: displaced tib/fib fx COMPARISON: Left tibia and fibula radiographs performed earlier today. FINDINGS: Note is again made of an acute mildly displaced comminuted oblique fracture of the mid to distal diaphysis of the left tibia. Fracture is displaced 1.6 cm. There is also a displaced fracture of the distal diaphysis of the left fibula. Fracture is displaced 0.9 cm. Minimally displaced fracture of the fibular tip is again noted. There is no ankle mortise widening. Talar dome is intact. No acute fractures within the left hindfoot are identified. IMPRESSION: Acute displaced left tibial and fibular fractures, as described above. ACT 112: Negative or not required by law. Electronically signed by: Mikel Artis M.D. 09/23/2023 10:24 AM IMPRESSION: L Distal 1/3 Tib/fib fractures, displaced, comminuted, closed; left dist fibular comminuted fracture minimally displaced from the tip, closed. PLAN: NWB LLE ALETA Consent obtained and signed. Discussed risks and benefits. Continue NPO Ancef on-call to OR. Plan OR later today for ORIF L tib/fib. Patient will be admitted overnight for pain control and to ensure compartment syndrome does not develop. History of Present Illness Reason for Consultation: Displaced left tib/fib fracture Attending Physician: Dr. James Amaya History of Present Illness This 37-year-old female is seen in consultation for a displaced tibia/fibula fracture that she sustained after a horse fell on her leg while she was giving it an injection for colic this morning. Patient states that she had to crawl back to her house and was transported to the ED by her . Patient states that she has been unable to bear any weight on the lower extremity. She has exquisite pain and swelling over the distal lower leg. She is able to move her digits but has pain when she attempts to move at her knee. She states that she has no chronic health conditions other than Raynaud's, migraine headaches and anxiety. She denies chest pain, shortness of breath, fever, chills, sweats or numbness or tingling in her left lower extremity. She also denies nausea, vomiting or any other GI issues. Allergies Allergy/AdvReac Type Severity Reaction Status Date / Time gabapentin Allergy Unknown RASH Unverified 10/15/17 01:00 Iodinated Contrast Media Allergy Unknown RASH Unverified 10/15/17 01:00 Sulfa (Sulfonamide Allergy Unknown RASH Unverified 10/15/17 01:00 Antibiotics) AJ Allergy Unknown rash Uncoded 10/14/17 19:48 Home Medications Medication Instructions Recorded Confirmed Type cetirizine 10 mg tablet (Zyrtec) 10 mg PO DAILY PRN 07/24/19 History escitalopram oxalate 20 mg tablet 20 mg PO DAILY 07/24/19 History fluticasone propionate 50 2 sprays intranasal DAILY 07/24/19 History mcg/actuation nasal spray,suspension levonorgestrel 17.5 mcg/24 hrs intrauterine 07/24/19 History (5yrs) 19.5mg intrauterine device (Kyleena) tizanidine 4 mg capsule 2 mg PO BID 07/24/19 History Patient History Medical History Migraine without aura and without status migrainosus, not intractable Allergic rhinitis due to other allergen Psoriasis Raynaud's disease without gangrene Sicca syndrome with keratoconjunctivitis Surgical History H/O wisdom tooth extraction S/P spinal surgery Family History Mother Arthritis Raynauds syndrome Brother Scoliosis Social History Smoking Status: Never smoker Hx Alcohol Use: No Hx Substance Use: No Feels Safe at Home: Yes Review of Systems Review of Systems: All systems reviewed & are unremarkable except as noted in Subjective Physical Exam Physical Exam: Left lower extremity: Patient has exquisite tenderness to palpation over the distal tibia and fibula with visible edema. There is no erythema, ecchymosis or skin breakdown. There is no tenting of the skin. Patient is able to slightly actively dorsi and plantarflex her foot. She is able to move the digits in her toes. She is able to detect light sensation to touch over the pads of all digits. She was very hesitant to move her knee due to the pain she experiences when she tried to do this earlier. Her peripheral pulses are 2+. She is neurovascularly intact in the left lower extremity. Results & Data Vital Signs (Past 12 Hours) Vital Signs Temp Pulse Resp BP Pulse Ox O2 Del Method 09/23/23 07:03 36 C L 108 H 18 128/91 100 Room Air Diagnostic Findings Laboratory Results WBC 11.53 K/ul (4.8-10.8) H 09/23/23 07:30 RBC 4.92 M/uL (4.20-5.40) 09/23/23 07:30 Hgb 13.9 g/dl (12.0-16.0) 09/23/23 07:30 Hct 41.7 % (37.0-47.0) 09/23/23 07:30 MCV 84.8 fL (80.0-100.0) 09/23/23 07:30 MCH 28.3 pg (25.0-34.0) 09/23/23 07:30 MCHC 33.3 g/dL (32.0-36.0) 09/23/23 07:30 RDW Std Deviation 35.7 fL (36.4-46.3) L 09/23/23 07:30 RDW Coeff of Kayla 11.6 % (11.5-14.5) 09/23/23 07:30 Plt Count 252 K/uL (130-400) 09/23/23 07:30 MPV 10.2 fL (9.4-12.4) 09/23/23 07:30 PT 11.2 Seconds (9.0-12.0) 09/23/23 07:30 INR 1.0 (0.9-1.1) 09/23/23 07:30 APTT 24 Seconds (21-31) 09/23/23 07:30 PTT Ratio 0.9 09/23/23 07:30 Sodium 139 mmol/L (136-145) 09/23/23 07:30 Potassium 3.6 mmol/L (3.5-5.1) 09/23/23 07:30 Chloride 109 mmol/L (98-107) H 09/23/23 07:30 Carbon Dioxide 25 mmol/L (21-32) 09/23/23 07:30 Anion Gap 5 (3-11) 09/23/23 07:30 BUN 13 mg/dl (6-23) 09/23/23 07:30 Creatinine 0.77 mg/dl (0.6-1.2) 09/23/23 07:30 Est Cr Clr Drug Dosing 93.0 ml/min 09/23/23 07:30 Est GFR ( Amer) 113.5 ml/min 09/23/23 07:30 Est GFR (Non-Af Amer) 97.9 ml/min 09/23/23 07:30 BUN/Creatinine Ratio 16.9 (10-20) 09/23/23 07:30 Glucose 97 mg/dl (70-99(Fasting)) 09/23/23 07:30 Calcium 8.6 mg/dl (8.6-10.3) 09/23/23 07:30 HCG, Qual Negative (Negative) 09/23/23 07:30 Impressions Tibia/Fibula X-Ray 09/23/23 07:17 XR tibia fibula LT 2V CLINICAL HISTORY: EVAL FRACTURE. Left lower leg pain. Injury. COMPARISON STUDY: None. FINDINGS: The proximal tibia and proximal fibula are intact. There are slightly comminuted oblique fractures involving the distal shafts of the left tibia and fibula. There is nondisplaced fracture intra-articular fracture within the distal tibia at the medial malleolus. There is also a small slightly comminuted fractures at the distal tip of the left fibula. Soft tissue swelling within the distal left lower leg/ankle. There is medial and lateral displacement of the distal shaft fractures as well as mild posterior angulation. These fractures demonstrate up to 1 cm of posterior displacement. No dislocation at the ankle. No metallic foreign bodies. IMPRESSION: Displaced fractures involving the distal tibia and fibula as described above. ACT 112: Negative or not required by law. Electronically signed by: Fox Shelton M.D. 09/23/2023 8:48 AM
[2023-09-23] MEDS: ACETAMINOPHEN 1,000 MG/100 ML VIAL IV STA (10:03)
[2023-09-23] MEDS: HYDROmorphone INJ 1 MG/ML SYRINGE ONE (10:03)
[2023-09-23] MEDS: HYDROmorphone INJ 1 MG/ML SYRINGE IV STA (10:03)
[2023-09-23] MEDS: ACETAMINOPHEN 1000 MG/100 ML IV IV ONE (10:04)
[2023-09-23] MEDS: SODIUM CHLORIDE 0.9% 1,000 ML IV SCH (10:13)
--- NOTE | 2023-09-23 10:26 | XRay Report ---
XR ankle LT 2V CLINICAL HISTORY: displaced tib/fib fx COMPARISON: Left tibia and fibula radiographs performed earlier today. FINDINGS: Note is again made of an acute mildly displaced comminuted oblique fracture of the mid to distal diaphysis of the left tibia. Fracture is displaced 1.6 cm. There is also a displaced fracture of the distal diaphysis of the left fibula. Fracture is displaced 0.9 cm. Minimally displaced fractur e of the fibular tip is again noted. There is no ankle mortise widening. Talar dome is intact. No acu te fractures within the left hindfoot are identified. IMPRESSION: Acute displaced left tibial and fibular fractures, as described above. ACT 112: Negative or not required by law. Electronically signed by: Mikel Artis M.D. 09/23/2023 10:24 AM
[2023-09-23] MEDS ORDERED: fentaNYL citrate PF 100 MCG/2 ML VIAL ONE ×2 (11:28→13:18)
[2023-09-23] MEDS ORDERED: MIDAZOLAM HCL 1 MG/ML 2ML VIAL ONE (11:28)
[2023-09-23] MEDS ORDERED: ePHEDrine sulfate 50 MG/ML AMP IV PRN (12:05)
[2023-09-23] MEDS ORDERED: HYDROmorphone INJ 2 MG/ML SYR/VIAL IV PRN (12:05)
[2023-09-23] MEDS ORDERED: ONDANSETRON INJ 2 MG/ML 2 ML VIAL IV PRN (12:05)
[2023-09-23] MEDS ORDERED: ATROPINE SULFATE 0.1 MG/ML 10ML SYR IV PRN (12:05)
--- NOTE | 2023-09-23 12:05 | Anesthesiology Consultation ---
Date of Service September 23, 2023 Assessment & Plan ASA ASA1 Proposed Anesthesia Anesthesia Type: General Risk / Benefits Reviewed With: PT / POA / Parent / Guardian, Accepts Plan and Informed Consent Obtained History Surgery Operation Date: 09/23/23 07:05 Proposed Procedures p Open Reduction Tibia Fibular Fracture - James Rebecca Amaya MD Height/Weight Height: 5 ft 3 in Weight: 70 kg Allergies Allergy/AdvReac Type Severity Reaction Status Date / Time gabapentin Allergy Unknown RASH Verified 09/23/23 11:55 Iodinated Contrast Media Allergy Unknown RASH Verified 09/23/23 11:55 Sulfa (Sulfonamide Allergy Unknown RASH Verified 09/23/23 11:55 Antibiotics) AJ Allergy Unknown rash Uncoded 10/14/17 19:48 Medications Home Medications Medication Instructions Recorded Confirmed Last Taken cetirizine 10 mg tablet (Zyrtec) 10 mg PO DAILY PRN 07/24/19 Unknown escitalopram oxalate 20 mg tablet 20 mg PO DAILY 07/24/19 Unknown fluticasone propionate 50 2 sprays intranasal DAILY 07/24/19 Unknown mcg/actuation nasal spray,suspension levonorgestrel 17.5 mcg/24 hrs intrauterine 07/24/19 Unknown (5yrs) 19.5mg intrauterine device (Kyleena) tizanidine 4 mg capsule 2 mg PO BID 07/24/19 Unknown Active Medications Generic Name Dose Route Start Last Admin Trade Name Freq PRN Reason Stop Dose Admin Sodium Chloride 1,000 mls @ 15 mls/hr 09/23/23 10:00 09/23/23 10:13 Nss IV 10/23/23 09:59 15 mls/hr .Q24H MARTINE Administration NPO Date Last Intake of Fluids: 09/23/23 Time Last Intake of Fluids: 00:00 Date Last Intake of Solids: 09/23/23 Time Last Intake of Solids: 00:00 Past Medical History Medical History Migraine without aura and without status migrainosus, not intractable Allergic rhinitis due to other allergen Psoriasis Raynaud's disease without gangrene Sicca syndrome with keratoconjunctivitis Exercise / Class Metabolic Activity II 4-5 Yardwork/Stairs/Walk up hill Past Family History Family History Mother Arthritis Raynauds syndrome Brother Scoliosis Past Surgical History Surgical History H/O wisdom tooth extraction S/P spinal surgery Past Anesthesia History No Hx of Anesthesia Complications and No Family Hx of Anesthesia Complications History of PONV No Hx of PONV and No Hx of Motion Sickness Social History Smoking Status: Never smoker Hx Alcohol Use: No Hx Substance Use: No Review of Systems denies fever/cough/ colds/ chest pain/ SOB/ MAN denies MAN Physical Exam Vital Signs Last Vital Signs Temp 36 C L 09/23/23 07:03 Pulse 108 H 09/23/23 07:03 Resp 18 09/23/23 07:03 BP 128/91 09/23/23 07:03 Pulse Ox 100 09/23/23 07:03 O2 Del Method Room Air 09/23/23 11:46 ENMT Mouth: no TMJ abnormality and no dentition abnormality Thyromental Distance: > or= 3.5 Finger Breadths Mallampati Class: II Neck neck extension not limited Respiratory normal respiratory effort; no respiratory distress Auscultation: lungs clear to auscultation bilaterally Cardiovascular Rate/Rhythm: regular rate and regular rhythm Neurologic moves all extremities Psychiatric Orientation: alert and oriented x 3 Testing Laboratory Results 09/23/23 07:30 09/23/23 07:30 PT 11.2 Seconds (9.0-12.0) 09/23/23 07:30 INR 1.0 (0.9-1.1) 09/23/23 07:30 APTT 24 Seconds (21-31) 09/23/23 07:30
[2023-09-23] MEDS: LACTATED RINGER'S 1,000 ML IV SCH (12:06)
[2023-09-23] MEDS ORDERED: KETAMINE HCL 10MG/ML SYR ONE (12:11)
[2023-09-23] MEDS ORDERED: DexMEDEtomidine HCL IV 100 MCG/ML VIAL IV ONE (12:11)
[2023-09-23] MEDS ORDERED: FAMOTIDINE/PF 20 MG/2 ML VIAL IV ONE (12:11)
[2023-09-23] MEDS: ceFAZolin 2000MG 2,000 MG/15 ML SYR IV SCH (12:28)
[2023-09-23] MEDS ORDERED: PROPOFOL IV EMULSION 10 MG/ML 20 ML VIAL IV ONE ×2 (12:51→16:12)
[2023-09-23] MEDS ORDERED: LIDOCAINE 2% 2 ML VIAL/AMP(20MG/ML) INFIL ONE (12:51)
[2023-09-23] MEDS ORDERED: ROCURONIUM BROMIDE 10 MG/ML 5 ML VIAL IV ONE ×2 (12:51→13:04)
[2023-09-23] MEDS: ceFAZolin 2,000 MG/15 ML IV PUSH IV ONE (13:40)
[2023-09-23] MEDS ORDERED: PHENYLEPHRINE 100MCG/ML 10ML SYR IV ONE (14:38)
[2023-09-23] MEDS ORDERED: ePHEDrine sulfate 50 MG/ML AMP ONE (14:38)
--- OUTSIDE RECORDS SUMMARY | 2023-09-23 15:52 | External Medical Summary | Summary of Care ---
Author Name Unknown Organization [facility] [address] [address] Phone [phone] Care Team Providers Care Envelope Fold Operator Name Role Phone Buzz Fuentes DO Primary Care Provider Reason for Visit * Reason Comments eRx-Medication Refill Encounter Details Date Type Department Care Team Description 04/01/2023 Refill Family Practice [facility] [place] [address] [facility] [place] [address] Buzz Fuentes DO [address] [facility] [place] [address] Current mild episode of major depressive disorder without prior episode (HCC) Allergies Active Allergy Reactions Severity Noted Date Comments Gabapentin Rash 10/28/2015 Had rash at same time as starting gabapentin and having MRI with contrast. Gadolinium Rash 11/03/2015 Started on gabapentin around same time of MRI with javier, more likely gabapentin related. Trimethoprim 04/05/2002 Rash documented as of this encounter (statuses as of 04/01/2023) Medications Medication Sig Dispensed Refills Start Date End Date Status fluticasone (FLONASE) 50 MCG/ACT nasal sprayIndications: Allergic rhinitis USE TWO SPRAYS IN EACH NOSTRIL DAILY 16 mL 6 04/03/2018 Active Escitalopram Oxalate 10 MG Oral Tablet (Lexapro)Indicati ons:Current mild episode of major depressive disorder without prior episode (HCC) TAKE 1 TABLET BY MOUTH EVERY DAY IN THE MORNING 30 Tablet 3 04/01/2023 Active Escitalopram Oxalate 10 MG Oral Tablet (Lexapro)Indicati ons:Current mild episode of major depressive disorder without prior episode (HCC) Take 1 Tablet by mouth in the morning. 30 Tablet 4 11/03/2022 04/01/2023 Discontinued documented as of this encounter (statuses as of 04/01/2023) Active Problems Problem Noted Date Nephrolithiasis 10/17/2017 Overview: 10/[address] in the ED Moderate single current episode of major depressive disorder 06/22/2017 Raynaud's disease without gangrene 06/16 Sicca syndrome with keratoconjunctivitis 06/16/2017 Intractable migraine without aura and wi thout status migrainosus 12/01/2016 Other form of scoliosis, unspecified spi nal region Overview: ICD-10 update of inactive term Other allergic rhinitis Overview: ICD-10 update of inactive term Other psoriasis documented as of this encounter (statuses as of 04/01/2023) Resolved Problems Problem Noted Date Resolved Date General counseling for prescription of oral cont raceptives 08/31/2010 07/18/2012 Molluscum contagiosum 12/27/2002 07/12/2007 Other psoriasis 07/20/2016 documented as of this encounter (statuses as of 04/01/2023) Immunizations Name Administration Dates Next Due COVID-19 mRNA, LNP-s, No Pre serve, 2-Dose Series (Moderna) 09/05/2020,08/08/2020 COVID-19, mRNA, LNP-s, PF, B ooster, 100mcg/0.5mg (Moderna) 07/07/2021 Rabies Vaccine (Rabavert) 04/08/2017,09/2016,11/14/2012,2006,11/02/2006,10/26/2006 SEASONAL INFLUENZA, PF, 6 M & Above, IM , (FLULAVAL or FLUZONE) 05/04/2022,04/21/2018,04/27/2017 Seasonal Influenza Virus Vac cine, Unspecified Formulation 05/05/2021 Seasonal Influenza, Quadriva lent, No Preserve, IM 03/31/2016,04/09/2015 Seasonal Influenza, Split, I IV3, With Preserve, Inj 04/04/2014 TDAP (age 10 and older)(Boostrix) 08/19/2016 documented as of this encounter Social History Tobacco Use Types Packs/Day Years Used Date Smoking Tobacco: Never Smokeless Tobacco: Never Alcohol Use Standard Drinks/Week Comments No 0 (1 standard drink = 0.6 oz pur e alcohol) Food Insecurity Answer Date Recorded Within the past 12 months, y ou worried that your food would run out before you got money to buy more. Never true 09/20/2022 Within the past 12 months, t he food you bought just didn't last and you didn't have money to get more. Never true 09/20/2022 Sex Assigned at Date Recorded Female 03/01/2022 3:44 PM E DT Job Start Date Occupation Industry Not on file Not on file Not on file documented as of this encounter Miscellaneous Notes * Telephone Encounter - Pipe Montoya [facility] - 04/01/2023 2:51 PM EDTSigned Prescriptions: Disp Refills Escitalopram Oxalate 10 MG Oral Tablet (Le*30 Tab*3 Sig: TAKE 1 TABLET BY MOUTH EVERY DAY IN THE MORNINGAuthorizing Provider: BUZZ FUENTES User: PIPE MONTOYA documented in this encounter Plan of Treatment Health Maintenance Due Date Last Done Comments Hepatitis B (1 of 3 - 3-dose series) 1984 HPV/Co-Test 2014 COVID-19 Vaccine (4 - Moderna series) 09/01/2021 07/07/2021, 09/05/2020, 08/08/2020 Depression Screening 03/01/2023 03/01/2022 Influenza Vaccine (FLU shot) (#1) 2023 05/04/2022, 05/05/2021, 04/21/2018, Additional history exists Cervical Cancer Screening 08/25/2024 Pap Smear 08/25/2024 08/25/2021, 09/2015, 07/18/2012, Additional history exists Diabetes Screening 11/10/2024 11/10/2021, 0 11/11/2017, 10/14/2017, Additional history exists DTaP,Tdap,and Td Vaccines (7 - Td or Tdap) 08/19/2026 08/19/2016, 02/08/2000, 10/20/1989, Additional history exists MENINGOCOCCAL (MENACTRA/MENVEO) Aged Out 12/27/2002 No longer eligible based on patient's age to complete this topic Hepatitis C Screening Completed 03/04/2017, 017 GARDASIL-HPV IMMUNIZATION SERIES Aged Out No longer eligible based on patient's age to complete this topic Pneumococcal Vaccine: Pediatrics (0 to 5 Years) and At-Risk Patients (6 to 64 Years) Aged Out No longer eligible based on patient's age to complete this topic documented as of this encounter Medical Devices Not on filedocumented as of this encounter Visit Diagnoses Diagnosis Current mild episode of major depressive disorder without prior episode (HCC) documented in this encounter Care Teams Envelope Fold Operator Relationship Specialty Start Date End Date Buzz Fuentes DO [address] [place] [address] PCP - General Family Medicine 04/02/22 documented as of this encounter
--- OUTSIDE RECORDS SUMMARY | 2023-09-23 15:52 | External Medical Summary | Summary of Care ---
Author Name Unknown Organization [facility] [address] [facility] [facility] [address] Phone [phone] Care Team Providers Care Hoop Flaring Machine Operator Helper Name Role Phone Buzz Fuentes DO Primary Care Provider Reason for Visit * Reason Comments eRx-Medication Refill Encounter Details Date Type Department Care Team (Late st Contact Info) Description 07/28/2023 Refill Family Practice [facility] [address] [facility] [place] [address] Buzz Fuentes DO [address] [facility] [id number] Current mild episode of major depressive disorder without prior episode (HCC) Allergies Active Allergy Reactions Criticality Noted Date Comments Gabapentin Rash 10/28/2015 Had rash at same time as starting gabapentin and having MRI with contrast. Gadolinium Rash 11/03/2015 Started on gabapentin around same time of MRI with javier, more likely gabapentin related. Trimethoprim 04/05/2002 Rash documented as of this encounter (statuses as of 07/28/2023) Medications Medication Sig Dispensed Refills Start Date End Date Status fluticasone (FLONASE) 50 MCG/ACT nasal sprayIndications: Allergic rhinitis USE TWO SPRAYS IN EACH NOSTRIL DAILY 16 mL 6 04/03/2018 Active Escitalopram Oxalate 10 MG Oral Tablet (Lexapro)Indicati ons:Current mild episode of major depressive disorder without prior episode (HCC) TAKE 1 TABLET BY MOUTH EVERY DAY IN THE MORNING 30 Tablet 2 07/28/2023 Active Escitalopram Oxalate 10 MG Oral Tablet (Lexapro)Indicati ons:Current mild episode of major depressive disorder without prior episode (HCC) TAKE 1 TABLET BY MOUTH EVERY DAY IN THE MORNING 30 Tablet 3 04/01/2023 07/28/2023 Discontinued documented as of this encounter (statuses as of 07/28/2023) Active Problems Problem Noted Date Diagnosed Date Nephrolithiasis 10/17/2017 Overview: 4/[address] in the ED Moderate single current epis ode of major depressive disorder 06/22/2017 Raynaud's disease without gangrene 06/16/2017 Sicca syndrome with keratoconjunctivitis 017 Intractable migraine without aura and without status migrainosus 12/01/2016 Other form of scoliosis, unspecified spinal judy on Overview: ICD-10 update of inactive term Other allergic rhinitis Overview: ICD-10 update of inactive term Other psoriasis documented as of this encounter (statuses as of 07/28/2023) Resolved Problems Problem Noted Date Diagnosed Date Resolved Date General counseling for presc ription of oral contraceptives 08/31/2010 07/18/2012 Molluscum contagiosum 12/27/20022007 Other psoriasis 07/20/2016 documented as of this encounter (statuses as of 07/28/2023) Immunizations Name Administration Dates Next Due COVID-19 mRNA, LNP-s, No Pre serve, 2-Dose Series (Moderna) 09/05/2020,08/08/2020 COVID-19, mRNA, LNP-s, PF, B ooster, 100mcg/0.5mg (Moderna) 07/07/2021 Rabies Vaccine (Rabavert) 04/08/2017,09/2016,11/14/2012,2006,11/02/2006,10/26/2006 Seasonal Influenza Virus Vac cine, Unspecified Formulation 05/05/2021 Seasonal Influenza, PF, 6 M & above, IM , (FluLaval or Fluzone) 05/04/2022,04/21/2018,04/27/2017 Seasonal Influenza, Quadriva lent, No Preserve, IM 03/31/2016,04/09/2015 Seasonal Influenza, Split, I IV3, With Preserve, Inj 04/04/2014 TDAP (age 10 and older)(Boostrix) 08/19/2016 documented as of this encounter Social History Tobacco Use Types Packs/Day Years Used Date Smoking Tobacco: Never Smokeless Tobacco: Never Alcohol Use Standard Drinks/Week Comments No 0 (1 standard drink = 0.6 oz pur e alcohol) PHQ-2 Answer Date Recorded PHQ Adult Total Score 0 03/01/2022 Hunger Vital Sign Answer Date Recorded Within the past 12 months, y ou worried that your food would run out before you got the money to buy more. Never true 09/21/19 23 Within the past 12 months, t he food you bought just didn't last and you didn't have money to get more. Never true 09/20/2022 Sex and Gender Information Value Date Recorded Sex Assigned at Female 03/01/2022 3:44 PM EDT Gender Identity Female 03/01/2022 3:44 PM EDT Sexual Orientation Straight 03/01/2022 3: 44 PM EDT Job Start Date Occupation Industry Not on file Not on file Not on file documented as of this encounter Miscellaneous Notes * Telephone Encounter - Shawna Loya RPh - 07/28/2023 3:11 PM EST Signed Prescriptions: Disp Refills Escitalopram Oxalate 10 MG Oral Tablet (Le*30 Tab*2 Sig: TAKE 1 TABLET BY MOUTH EVERY DAY IN THE MORNINGAuthorizing Provider: BUZZ FUENTES User: SHAWNA LOYA documented in this encounter Plan of Treatment Health Maintenance Due Date Last Done Comments Hepatitis B (1 of 3 - 3-dose series) 1984 HPV/Co-Test 2014 Depression Screening 03/01/2023 03/01/2022 COVID-19 Vaccine (24 season) 2023 07/07/2021, 09/05/2020, 08/08/2020 Influenza Vaccine (FLU shot) (#1) 2023 05/04/2022, 05/05/2021, 04/21/2018, Additional history exists Cervical Cancer Screening 08/25/2024 Pap Smear 08/25/2024 08/25/2021, /0 09/2015, 07/18/2012, Additional history exists Diabetes Screening [...] (HCC) documented in this encounter Care Teams Hoop Flaring Machine Operator Helper Relationship Specialty Start Date End Date Buzz Fuentes DO [address] [place] [address] PCP - General Family Medicine 04/02/22 documented as of this encounter
[2023-09-23] MEDS ORDERED: ONDANSETRON INJ 2 MG/ML 2 ML VIAL ONE (16:12)
[2023-09-23] MEDS: BUPIVACAINE 0.5 % 5 MG/1 ML MPF 30ML VIAL ONE (16:12)
[2023-09-23] MEDS ORDERED: ACETAMINOPHEN 1000 MG/100 ML IV IV ONE (16:22)
--- NOTE | 2023-09-23 16:47 | Post Operative Brief Note ---
Immediate Post Op Note v1 Date of Surgery September 23, 2023 Pre & Post Diagnosis Operation Date: 09/23/23 07:05 Pre-Op Diagnosis: Fracture of left tibia and fibula Post-Op Diagnosis: Fracture of left tibia and fibula I identified the patient and participated in the time-out.: Yes Procedure Operation Date: 09/23/23 07:05 Actual Procedures p Open Reduction Internal Fixation Distal Tibia and Fibula Fractures-Left(Left) - James Amaya MD Surgeon James Amaya MD Physician Practice Coordinator Tarun Vaughan PA-C (No fellow avail) Estimated Blood Loss 40 Findings Consistent with Post-Op Diagnosis Fluids 1500 cc Anesthesia Type General Complications none
--- NOTE | 2023-09-23 16:52 | Operative Report ---
Post Operative Report Pre & Post Diagnosis Operation Date: 09/23/23 07:05 Pre-Op Diagnosis: Fracture of left tibia and fibula Post-Op Diagnosis: Fracture of left tibia and fibula I identified the patient and participated in the time-out.: Yes Procedure Operation Date: 09/23/23 07:05 Actual Procedures p Open Reduction Internal Fixation Distal Tibia and Fibula Fractures-Left (Left) - James Amaya MD Surgeon James Amaya MD Undercover Agent Tarun Vaughan PA-C (No fellow avail) Estimated Blood Loss 40 Findings See Below Displaced, comminuted left distal third Tibia fracture with extension into the Tibial Plafond Displaced, comminuted left distal fibular shaft fracture Comminuted fibular tip fracture, minimally displaced Fluids 1500 cc Specimens n/a Anesthesia Type General Complications none Indications The patient is a 37 year old female who injured their left lower leg when their horse fell on her leg, sustaining a displaced distal third tib-fib fractures. The patient and his family understands the risks of surgery, which include but are not limited to: bleeding, infection, re-operation, damage to nerves and arteries, continued pain, loss of reduction, hardware failure, the need for repeat surgery, decrease level of activity, compartment syndrome, and DVT. The patient and his family understand all of these instructions and explanations, all of their questions have been satisfactorily addressed. The patient and his family have elected to proceed with surgery and the informed consent was signed. Description of Procedure IMPLANTS: Tibia 1. 15 hole, 3.5 mm Anterolateral Distal Tibia locking plate (Synthes). 2. 3.5 locking screws (24, 26 x 3, 28 x 36 x 4, & 38 mm). 3. 4.0 mm cannulated screw (42 mm). Fibula 1. 7 hole third tubular locking plate (Synthes). 2. 3.5 cortical screws (12 x 3 & 14 mm). 3. 3.5 mm locking screw (12 mm x 2). PROCEDURE: The patient was taken to the Operating Room and placed in the supine position on the operating table. After general anesthetic was administered a multidisciplinary time-out was performed identifying my initials on the left limb as the correct and operative limb. Prior to the incision being made, 2 grams of intravenous Ancef were given and another 2 g of Ancef were given at the end of the case as it was nearing 4 hours. The left leg was prepped and draped in the standard fashion. The distal fibula and tibia were marked as well as the planned incision centered about the distal fibula 10 cm in length and the central incision was approximately 25 cm and started just lateral to the anterior crest, centered over the fracture. The planned incisions were injected with a 50:50 mixture of 1% lidocaine with epi and 0.5 % Marcaine plain for a total of 20 cc. The tibia fracture was approached first. The skin incision was made and carefully carried down to the fascia identifying the superficial peroneal nerve which was protected throughout. There was a rent in the fascia anteriorly and hematoma was evacuated immediately. There was some periosteal stripping. The fracture site was debrided with copious irrigation, dental pick, and removing any soft tissue and hematoma. There was noted comminution and slight deformity formation at the apex of the proximal medial fragment. A couple of very small cortical shards were removed. A reduction maneuver was performed with traction and internal rotation. Using a pointed reduction clamp to hold the fracture in place, a K wire was also used to maintain the reduction. The 15 hole plate appeared to fit best and after contouring the plate to fit the bone distal anteriorly and held in place with k-wire and Faberge. The intra-articular split was identified and held reduce with a pointed reduction clamp. A k-wire was placed outside the plate and directed into the medial malleolus. Fluoroscopy confirmed the reduced fracture and good placement of the plate. A 3.5 mm cortical screw was placed distally and proximally to bring the plate to the bone. Next 3.5 mm locking screws were placed in the standard fashion, both proximally and distally. The cortical screws were removed, the distal 1 was replaced with a locking screw. The proximal screw was felt to be to close to the butterfly fragment.A 4.0 cannulated screw was placed over the k-wire into the medial malleolus in the standard fashion after counter sinking. A #1 was passed around the plate and butterfly fragment that was bridged and used as a cerclage. All the clamps and k-wires were removed. Fluoroscopy was brought in to ensure an anatomic reduction. Next our attention was drawn to the fibula as it appeared displaced significantly on the AP. The planned incision was made and carried down to the fibula.The fracture site was easily identified as there was a tear in the fascia. The Superficial Peroneal nerve was identified in the first incision and our dissection was carried more posteriorly here. The fracture site was debrided with copious irrigation, dental pick, and removing any soft tissue and hematoma. The fracture was manually reduced a 7 hole third tubular plate fit the distal fibula and a 2 non-locking screws were placed through the plate through the distal and proximal fragments to secure the plate down to the bone. Then an additional locking screw was placed in the proximal and distal holes in the standard fashion. The anterior butterfly fragment, care was taken to maintain soft tissue attachment, was manual reduced and clicked into anatomic position. Fluoroscopy was brought in and external rotation testing showed the syndesmosis to be reduced and stable. The wounds were copiously irrigated. Final x-rays were obtained,showing the hardware in good position and anatomic reduction. The fascia was left released. The subcutaneous layer was closed with 3-0 Vicryl. The skin was closed with to. The calf was soft. The sponge and needle counts were correct. The wounds were covered with Xeroform, 4x4's, ABD's, Steril cast padding, and a posterior splint was placed. The patient was awakened and taken to the recovery room in stable condition, her pain was much improved, wiggling her toes, BCR < 2 sec, sensation to light touch was slightly diminished to lesser toes. Post-op Instructions:The patient will remain NWB for a minimum of 4 weeks. The patient will be admitted for observation. Pain medicine will be given. PT/OT, and discharge planning will see the patient tomorrow. DVT prophylaxis will continue with TEDs and foot pump on the left lower extremity while in hospital and the patient will start Eliquis for minimum 6 weeks. I attest to the content of the Intraoperative Record and any orders documented therein. Any exceptions are noted below.
--- NOTE | 2023-09-23 16:59 | Fluoroscopy Report ---
FL tibia/fibula LT 2V CLINICAL HISTORY: LEFT TIB/FIB. Internal fixation. COMPARISON STUDY: Left ankle 3 -24. FLUOROSCOPY TIME: 36.5 seconds. FLUOROSCOPY IMAGES: 4 Ka,r: 1.1 mGy FINDINGS: Status post internal fixation of the distal left tibial and fibular fractures with cortical plates and screws. The hardware appears intact. Alignment appears near-anatomic. IMPRESSION: Fluoroscopic assistance as above. ACT 112: Negative or not required by law. Electronically signed by: Fox Shelton M.D. 09/23/2023 4:57 PM
--- NOTE | 2023-09-23 17:01 | Operative Report ---
Post Operative Report Pre & Post Diagnosis Operation Date: 09/23/23 07:05 Pre-Op Diagnosis: Fracture of left tibia and fibula Post-Op Diagnosis: Fracture of left tibia and fibula I identified the patient and participated in the time-out.: Yes Procedure Operation Date: 09/23/23 07:05 Actual Procedures p Open Reduction Internal Fixation Tibia Fibular Fracture-Left(Left) - James Rebecca Amaya MD Surgeon Dr Amaya Tosser Tarun Vaughan PA-C (No fellow avail) Estimated Blood Loss 40 Findings Consistent with Post-Op Diagnosis Specimens none Description of Procedure Pt was taken to operating room and properly positioned for procedure. Refer to anesthesia's note for anesthesia used. Pt was given pre-op antibiotics. Prepped and draped in sterile fashion. I was present during the entire case and assisted with positioning, instrumentation, closure and dressings. Please see surgeon's op report for further detail. Pt was awake and transferred to PACU in stable condition I attest to the content of the Intraoperative Record and any orders documented therein. Any exceptions are noted below.
[2023-09-23] MEDS ORDERED: ESMOLOL HCL INJ 10 MG/ML 10ML VIAL IV ONE (17:04)
[2023-09-23] MEDS: fentaNYL citrate PF 100 MCG/2 ML VIAL IV PRN (17:28)
--- NOTE | 2023-09-23 17:55 | Anesthesiology Progress Note ---
Date of Service September 23, 2023 Anesthesia Post Procedure Vital Signs Vital Signs: Temp Pulse Pulse Resp BP BP Pulse Ox 09/23/23 17:45 96 H 14 120/83 97 09/23/23 17:35 83 12 124/76 96 09/23/23 17:25 80 12 121/80 97 09/23/23 17:15 81 17 120/79 97 09/23/23 17:05 78 18 119/75 98 09/23/23 16:56 36.1 C L 91 H 14 118/71 98 09/23/23 11:58 36.4 C L 83 20 117/73 99 09/23/23 11:46 09/23/23 07:03 36 C L 108 H 18 128/91 100 O2 Del Method O2 Flow Rate 09/23/23 17:45 Room Air 09/23/23 17:35 Room Air 09/23/23 17:25 Room Air 09/23/23 17:15 Oxymask 5 09/23/23 17:05 Oxymask 10 09/23/23 16:56 Oxymask 10 09/23/23 11:58 Room Air 09/23/23 11:46 Room Air 09/23/23 07:03 Room Air Pain Intensity Left Leg: Pain Intensity: 3 Transfer of Care Handoff Completed per policy Notes Mental Status: alert / awake / arousable Patient Amnestic to Procedure: Yes Nausea / Vomiting: adequately controlled Pain: adequately controlled Airway Patency, RR, SpO2: stable & adequate BP & HR: stable & adequate Hydration State: stable & adequate Anesthetic Complications: no major complications apparent and Pt Satisfied with anesthetic care
[2023-09-23] MEDS ORDERED: CETIRIZINE HCL 10 MG TABLET PO PRN (18:24)
[2023-09-23] MEDS ORDERED: ACETAMINOPHEN 325 MG TAB PO PRN (18:24)
[2023-09-23] MEDS ORDERED: diphenhydrAMINE Capsule 25 MG CAP PO PRN (18:24)
[2023-09-23] MEDS: ONDANSETRON INJ 2 MG/ML 2 ML VIAL IV PRN (18:34)
[2023-09-23] MEDS: LIDOCAINE 1%/EPINEPHRINE 1:100,000 20 ML VIAL ONE (18:46)
[2023-09-23] MEDS: MoRPHine SULFATE 2 MG/ML CARP IV PRN (19:38)
[2023-09-23] MEDS: METOCLOPRAMIDE HCL INJ 5 MG/ML 2 ML VIAL IV PRN (19:43)
[2023-09-23] MEDS: APIXABAN 2.5 MG TAB PO SCH (20:07)
[2023-09-23] MEDS: tiZANidine HCL 4 MG TABLET PO SCH (20:07)
[2023-09-24] MEDS: oxyCODONE/ACETAMINOPHEN 5mg/325mg TAB PO PRN (01:40)
[2023-09-24 06:44] LABS: Basophils # (auto) 0.01 K/uL (0.00-0.20); Basophils % (auto) 0.1 %; Hematocrit (blood only) 32.9 % (37.0-47.0); Hemoglobin 10.9 g/dl (12.0-16.0); Immature Granulocytes # (auto) 0.04 K/uL (0.01-0.20); Immature Granulocytes % (auto) 0.3 %; Lymphocytes % (auto) 12.1 %; Mean Corpuscular Hemoglobin 28.8 pg (25.0-34.0); Mean Corpuscular Hgb Conc 33.1 g/dL (32.0-36.0); Mean Corpuscular Volume 86.8 fL (80.0-100.0); Mean Platelet Volume 10.3 fL (9.4-12.4); Monocytes # (auto) 1.12 K/uL (0.11-0.59); Monocytes % (auto) 8.5 %; Neutrophils # (auto) 10.46 K/uL (1.40-6.50); Platelet Count 227 K/uL (130-400); RDW Coefficient of Variation 11.7 % (11.5-14.5); RDW Standard Deviation 37.2 fL (36.4-46.3); Red Blood Count 3.79 M/uL (4.20-5.40); White Blood Count 13.23 K/ul (4.8-10.8)
[2023-09-24 06:53] LABS: BUN Creatinine Ratio 14.9 (10-20); Calcium 8.4 mg/dl (8.6-10.3); Creatinine Clr Calc Pharmacy 96.7 ml/min; Est GFR (African American) 119.1 ml/min; Est GFR (Non-African American) 102.8 ml/min; Potassium 4.2 mmol/L (3.5-5.1)
[2023-09-24] MEDS: FLUTICASONE PROPIONATE NA SPR 16 GM BTL NAE SCH (08:49)
[2023-09-24] MEDS: ESCITALOPRAM OXALATE 20 MG TAB PO SCH (08:49)
[2023-09-24] MEDS ORDERED: CHOLECALCIFEROL 25 MCG (1000 UNITS) TAB PO SCH (09:00)
--- NOTE | 2023-09-24 09:20 | Orthopedic Progress Note ---
Date of Service September 24, 2023 Assessment & Plan (1) Closed fracture of left tibia and fibula: Plan: POD #1 s/p ORIF L distal Tibia and fibula, doing as well as expected. Resume diet. NWB LLE. OOB to chair. Continue pain control. DVT prophylaxis: TEDs 3 weeks, foot pumps while in hospital, Eliquis 2.5 mg BID for min 6 weeks. PT/OT. Off work min 2 weeks D/C planning for later today if passes PT. Present on Admission?: Yes Admission and Anticipated Discharge Date Admission Date: September 23, 2023 Subjective Doing well Physical Exam Physical Exam: LLE: BCR < 2 sec. Sensation to light touch intact small toe and 1st web space, 95% great toe, 50% toes 2-4. Wiggling toes. Calf soft and non-tender. Dressing/splint is clean, dry, intact. Results & Data Vital Signs (Past 12 Hours) Vital Signs Temp Pulse Resp BP Pulse Ox O2 Del Method 09/24/23 07:28 36.9 C 88 16 119/70 100 Room Air 09/24/23 03:53 36.2 C L 84 16 115/74 99 Room Air 09/23/23 23:00 36.5 C 100 H 16 120/77 97 Room Air Laboratory Results Laboratory Results WBC 13.23 K/ul (4.8-10.8) H 09/24/23 06:05 RBC 3.79 M/uL (4.20-5.40) L 09/24/23 06:05 Hgb 10.9 g/dl (12.0-16.0) L D 09/24/23 06:05 Hct 32.9 % (37.0-47.0) L 09/24/23 06:05 MCV 86.8 fL (80.0-100.0) 09/24/23 06:05 MCH 28.8 pg (25.0-34.0) 09/24/23 06:05 MCHC 33.1 g/dL (32.0-36.0) 09/24/23 06:05 RDW Std Deviation 37.2 fL (36.4-46.3) 09/24/23 06:05 RDW Coeff of Kayla 11.7 % (11.5-14.5) 09/24/23 06:05 Plt Count 227 K/uL (130-400) 09/24/23 06:05 MPV 10.3 fL (9.4-12.4) 09/24/23 06:05 Immature Gran % (Auto) 0.3 % 09/24/23 06:05 Neut % (Auto) 79.0 % 09/24/23 06:05 Lymph % (Auto) 12.1 % 09/24/23 06:05 [place] % (Auto) 8.5 % 09/24/23 06:05 Eos % (Auto) 0.0 % 09/24/23 06:05 Baso % (Auto) 0.1 % 09/24/23 06:05 Neut # (Auto) 10.46 K/uL (1.40-6.50) H 09/24/23 06:05 Lymph # (Auto) 1.60 K/uL (1.20-3.40) 09/24/23 06:05 [place] # (Auto) 1.12 K/uL (0.11-0.59) H 09/24/23 06:05 Eos # (Auto) 0.00 K/uL (0.00-0.50) 09/24/23 06:05 Baso # (Auto) 0.01 K/uL (0.00-0.20) 09/24/23 06:05 Immature Gran # (Auto) 0.04 K/uL (0.01-0.20) 09/24/23 06:05 PT 11.2 Seconds (9.0-12.0) 09/23/23 07:30 INR 1.0 (0.9-1.1) 09/23/23 07:30 APTT 24 Seconds (21-31) 09/23/23 07:30 PTT Ratio 0.9 09/23/23 07:30 Sodium 140 mmol/L (136-145) 09/24/23 06:05 Potassium 4.2 mmol/L (3.5-5.1) 09/24/23 06:05 Chloride 111 mmol/L (98-107) H 09/24/23 06:05 Carbon Dioxide 24 mmol/L (21-32) 09/24/23 06:05 Anion Gap 5 (3-11) 09/24/23 06:05 BUN 11 mg/dl (6-23) 09/24/23 06:05 Creatinine 0.74 mg/dl (0.6-1.2) 09/24/23 06:05 Est Cr Clr Drug Dosing 96.7 ml/min 09/24/23 06:05 Est GFR ( Amer) 119.1 ml/min 09/24/23 06:05 Est GFR (Non-Af Amer) 102.8 ml/min 09/24/23 06:05 BUN/Creatinine Ratio 14.9 (10-20) 09/24/23 06:05 Glucose 117 mg/dl (70-99(Fasting)) H 09/24/23 06:05 Calcium 8.4 mg/dl (8.6-10.3) L 09/24/23 06:05 25-OH Vitamin D Total 27.3 ng/ml (30-100) L 09/24/23 06:05 HCG, Qual Negative (Negative) 09/23/23 07:30
--- NOTE | 2023-09-25 12:20 | Discharge Summary ---
Date of Service September 25, 2023 Admission HPI Per Admitting Provider This 37-year-old female is seen in consultation for a displaced tibia/fibula fracture that she sustained after a horse fell on her leg while she was giving it an injection for colic this morning. Patient states that she had to crawl back to her house and was transported to the ED by her . Patient states that she has been unable to bear any weight on the lower extremity. She has exquisite pain and swelling over the distal lower leg. She is able to move her digits but has pain when she attempts to move at her knee. She states that she has no chronic health conditions other than Raynaud's, migraine headaches and anxiety. She denies chest pain, shortness of breath, fever, chills, sweats or numbness or tingling in her left lower extremity. She also denies nausea, vomiting or any other GI issues. Discharge Data Procedures Performed Operation Date: 09/23/23 07:05 Actual Procedures p Open Reduction Tibia Fibular Fracture-Left(Left) - James Amaya MD Hospital Course (1) Closed fracture of left tibia and fibula: Patient was kept in observation at the [facility] after injuring her left tibia and fibula when a horse fell onto her left leg while getting an injection. She was brought to the emergency room by her where x-rays were taken and she was found to have a displaced spiral fracture of the left tibia and fibula. She was unable to weight-bear. Due to the x-ray findings surgical intervention was recommended. She was seen in consultation and scheduled for surgery. She had an open reduction internal fixation of her left tibia and fibula fracture with Dr. Amaya on September 23, 2023. Her surgery was performed with general anesthesia and she tolerated the procedure well without any intraoperative complications. She was given 2 g of IV Ancef for surgical prophylaxis which was continued for 24 hours after her procedure. Postoperatively she was placed in a splint and was allowed to be nonweightbearing of the left lower extremity. Her home medications were continued. She was given Eliquis for DVT prophylaxis. Her CBC, BMP were within normal limits that were drawn on the day after her surgery. Her vitamin D was shown to be deficient. She was started on vitamin D supplementation on September 24, 2023 which would be continued postoperatively. She was seen and evaluated by the physical therapist and occupational therapist. She was allowed out of bed with assistance of crutches. Encouraged ice and elevation. She was given oxycodone and Tylenol as well as hydromorphone as needed for pain while she was in the hospital. She was given JOÃO stockings x 3 weeks, AV impulse boots and El iquis 2.5 mg p.o. twice daily for DVT prophylaxis. The Eliquis will be continued for 6 weeks after surgery. She was allowed out of bed to chair. Encouraged ice and elevation of her left leg at all times. Discharge instructions were reviewed. After her physical therapy and Occupational Therapy evaluation she was deemed safe for discharge to home. She was discharged to her home in stable condition on September 24, 2023. Pain medication, Eliquis and vitamin D supplementation was sent to her pharmacy. She was given instructions to schedule follow-up appointments. She understands and agrees with the plan. Supervising Physician Co-Signing Physician Notes I Dr. Amaya, saw and examined the patient and agree with the above findings and plan of care I developed and discussed with my PA. CC: LLE pain HPI: 37 yo female had her horse fall over onto her LLE this am. Unable to bare weight. Brought to ED, X-rays were obtained showing displaced L Tib/fib fractures. I was consulted for further evaluation and treatment. PE: LLE splint in place. Able to wiggle toes, sensation to light touch intact distally. BCR < 2 sec.. Calf soft and non-tender. Lungs: Breathing easily Heart: RRR RADIOGRAPH: XR ankle LT 2V CLINICAL HISTORY: displaced tib/fib fx COMPARISON: Left tibia and fibula radiographs performed earlier today. FINDINGS: Note is again made of an acute mildly displaced comminuted oblique fracture of the mid to distal diaphysis of the left tibia. Fracture is displaced 1.6 cm. There is also a displaced fracture of the distal diaphysis of the left fibula. Fracture is displaced 0.9 cm. Minimally displaced fracture of the fibular tip is again noted. There is no ankle mortise widening. Talar dome is intact. No acute fractures within the left hindfoot are identified. IMPRESSION: Acute displaced left tibial and fibular fractures, as described above. ACT 112: Negative or not required by law. Electronically signed by: Mikel Artis M.D. 09/23/2023 10:24 AM IMPRESSION: L Distal 1/3 Tib/fib fractures, displaced, comminuted, closed; left dist fibular comminuted fracture minimally displaced from the tip, closed. PLAN: [place] Consent obtained and signed. Discussed risks and benefits. Continue NPO Ancef on-call to OR. Plan OR later today for ORIF L tib/fib. Patient will be admitted overnight for pain control and to ensure compartment syndrome does not develop.
[2023-09-25] MEDS ORDERED: POLYETHYLENE (MIRALAX) 17 GM PACK PO SCH (18:00)
== END 2023-09-24 14:51 | disposition home or self-care (01) ==
LOC: 3N 06:56 → ED 06:56

== ENCOUNTER 2023-10-19 10:59 | Inpatient (IN) ==
[2023-10-19] MEDS ORDERED: ACETAMINOPHEN 325 MG TAB PO PRN (11:49)
[2023-10-19] MEDS ORDERED: VANCOMYCIN CONSULT ACTIVE PRN (11:54)
[2023-10-19 12:10] LABS: Basophils # (auto) 0.02 K/uL (0.00-0.20); Basophils % (auto) 0.3 %; Eosinophils # (auto) 0.06 K/uL (0.00-0.50); Eosinophils % (auto) 0.8 %; Hematocrit (blood only) 37.1 % (37.0-47.0); Hemoglobin 12.3 g/dl (12.0-16.0); Immature Granulocytes # (auto) 0.03 K/uL (0.01-0.20); Immature Granulocytes % (auto) 0.4 %; Lymphocytes # (auto) 1.45 K/uL (1.20-3.40); Lymphocytes % (auto) 20.2 %; Mean Corpuscular Hemoglobin 28.5 pg (25.0-34.0); Mean Corpuscular Hgb Conc 33.2 g/dL (32.0-36.0); Mean Corpuscular Volume 86.1 fL (80.0-100.0); Mean Platelet Volume 9.9 fL (9.4-12.4); Monocytes # (auto) 0.54 K/uL (0.11-0.59); Monocytes % (auto) 7.5 %; Neutrophils # (auto) 5.09 K/uL (1.40-6.50); Neutrophils % (auto) 70.8 %; Platelet Count 332 K/uL (130-400); RDW Coefficient of Variation 11.7 % (11.5-14.5); RDW Standard Deviation 36.8 fL (36.4-46.3); Red Blood Count 4.31 M/uL (4.20-5.40); White Blood Count 7.19 K/ul (4.8-10.8)
--- NOTE | 2023-10-19 12:23 | Emergency Department Note ---
History of Present Illness General Chief complaint: Wound Stated complaint: WOUND LEFT LOWER LEG, REF BY ORTHO Time Seen by Provider: 10/19/23 12:12 History of Present Illness Maximum Pain Intensity: 2 This is a 37-year-old female that presents to the emergency department via private vehicle with complaints of "wound, left lower leg, referred by orthopedics". The patient notes that about 4 weeks ago she underwent surgery to her left tibia/fibula. Per review of the EMR this was on 09/23/2023 secondary to fracture of the left tibia and fibula. Patient underwent open reduction internal fixation tibia/fibula. Patient was doing well postoperatively. Benny were removed. Patient then notes that she yesterday noted that the incisions look to be infected. She was concerned therefore prompted follow-up today with orthopedics. She saw Dr. Molina and was sent here for further evaluation and management. She notes that there was discussion of possible debridement as well as IV antibiotics. She denies any fevers, chills, nausea or vomiting. She notes that the left lower extremity wound was just dressed by orthopedics that had referred her here today. Patient denies any new trauma or injury. No numbness or tingling. Current pain 2/10. Home Medications Medication Instructions Recorded Confirmed Type cetirizine 10 mg tablet (Zyrtec) 10 mg PO DAILY PRN Allergy Symptoms 07/24/19 10/19/23 History escitalopram oxalate 20 mg tablet 20 mg PO DAILY 07/24/19 10/19/23 History fluticasone propionate 50 2 sprays intranasal DAILY 07/24/19 10/19/23 History mcg/actuation nasal spray,suspension apixaban 2.5 mg tablet (Eliquis) 2.5 mg PO BID 14 days #28 tabs 09/24/23 10/19/23 Rx cholecalciferol (vitamin D3) 25 25 mcg PO DAILY 42 days #42 caps 09/24/23 10/19/23 Rx mcg (1,000 unit) capsule acetaminophen 500 mg tablet 1,000 mg PO Q8H PRN pain or fever 10/19/23 10/19/23 History (Tylenol Extra Strength) etonogestrel 68 mg subdermal 68 mg subdermal UD 10/19/23 10/19/23 History implant (Nexplanon) Allergies Allergy/AdvReac Type Severity Reaction Status Date / Time gabapentin Allergy Unknown RASH Verified 10/19/23 13:02 Iodinated Contrast Media Allergy Unknown RASH Verified 10/19/23 13:02 nickel Allergy Unknown Rash Unverified 10/19/23 13:02 Sulfa (Sulfonamide Allergy Unknown RASH Verified 10/19/23 13:02 Antibiotics) AJ Allergy Unknown rash Uncoded 10/14/17 19:48 Past Med/Surg History Medical History Migraine without aura and without status migrainosus, not intractable Allergic rhinitis due to other allergen Psoriasis Raynaud's disease without gangrene Sicca syndrome with keratoconjunctivitis Surgical History H/O wisdom tooth extraction S/P spinal surgery Family History Mother Arthritis Raynauds syndrome Brother Scoliosis Social History Smoking Status: Never smoker Hx Alcohol Use: No Hx Substance Use: No Preferred Language: Burkinan Communication Ability: Effective Cycle Specialist Required: No Beliefs That Will Affect Care: None Current Living Situation: Spouse Feels Safe at Home: Yes Assistive Devices: None Review of Systems A total of 6 systems reviewed and were otherwise negative Physical Exam Vital Signs Vital Signs - 24 hr 10/19/23 11:05 10/19/23 12:53 10/19/23 13:18 Temperature 36.7 C Temperature Source Skin Pulse Rate 100 H 73 Pulse Rate [Apical] 87 Respiratory Rate 18 18 Respiratory Effort / Characteristics Non-Labored Spontaneous Respiratory Depth Normal Respiratory Pattern Regular Blood Pressure 131/94 Blood Pressure [Left Arm] 144/82 H Blood Pressure Mean 106 Blood Pressure Mean [Left Arm] 102 Blood Pressure Position [Left Arm] Lying Pulse Oximetry 97 99 Oxygen Delivery Method Room Air Sepsis Recent Fever Within 48 Hours No Sepsis New/Unexplained Change in Mental Status No Sepsis Action Taken by Nursing No Action Required VITAL SIGNS - Vital signs and nursing notes were reviewed. Stable and afebrile. GENERAL - 37-year-old female appearing her stated age who is in no acute distress. Communicates well with provider and answers questions appropriately. SKIN -left lower extremity covered with dressing followed by hightop Ortho boot. HEAD - NC/AT. EYES - Sclera anicteric. noted. NOSE - Midline and without cyanosis. MOUTH/OROPHARYNX - Without perioral cyanosis. LUNGS - CTA CARDIAC - RRR EXTREMITIES - No clubbing or peripheral cyanosis. Left lower extremity covered with a recently applied dressing followed by boot. Cap refill of L foot toes WNL. No toe erythema or erythema above boot/underlying dressing. NEUROLOGIC -patient neurovascularly intact throughout the left lower extremity without deficit. PSYCH -alert, oriented and pleasant on exam. Medical Decision Making Laboratory Data 10/19/23 11:50 10/19/23 11:50 Lab Results 10/19/23 Range/Units 11:50 WBC 7.19 (4.8-10.8) K/ul RBC 4.31 (4.20-5.40) M/uL Hgb 12.3 (12.0-16.0) g/dl Hct 37.1 (37.0-47.0) % MCV 86.1 (80.0-100.0) fL MCH 28.5 (25.0-34.0) pg MCHC 33.2 (32.0-36.0) g/dL RDW Std Deviation 36.8 (36.4-46.3) fL RDW Coeff of Kayla 11.7 (11.5-14.5) % Plt Count 332 (130-400) K/uL MPV 9.9 (9.4-12.4) fL Immature Gran % (Auto) 0.4 % Neut % (Auto) 70.8 % Lymph % (Auto) 20.2 % [place] % (Auto) 7.5 % Eos % (Auto) 0.8 % Baso % (Auto) 0.3 % Neut # (Auto) 5.09 (1.40-6.50) K/uL Lymph # (Auto) 1.45 (1.20-3.40) K/uL [place] # (Auto) 0.54 (0.11-0.59) K/uL Eos # (Auto) 0.06 (0.00-0.50) K/uL Baso # (Auto) 0.02 (0.00-0.20) K/uL Immature Gran # (Auto) 0.03 (0.01-0.20) K/uL Sodium 138 (136-145) mmol/L Potassium 4.0 (3.5-5.1) mmol/L Chloride 107 (98-107) mmol/L Carbon Dioxide 25 (21-32) mmol/L Anion Gap 6 (3-11) BUN 13 (6-23) mg/dl Creatinine 0.74 (0.6-1.2) mg/dl Est Cr Clr Drug Dosing 97.6 ml/min Est GFR ( Amer) 119.1 ml/min Est GFR (Non-Af Amer) 102.8 ml/min BUN/Creatinine Ratio 17.6 (10-20) Glucose 91 (70-99(Fasting)) mg/dl Calcium 9.6 (8.6-10.3) mg/dl Total Bilirubin 0.5 (0.2-1.0) mg/dl AST 22 (13-39) U/L ALT 25 (7-52) U/L Alkaline Phosphatase 122 H (34-104) U/L Total Protein 7.5 (6.0-8.3) gm/dl Albumin 4.4 (3.4-5.0) gm/dl Globulin 3.1 (2.5-4.0) gm/dl Albumin/Globulin Ratio 1.4 (0.9-2) MDM Narrative Patient was seen and evaluated as above in Triage 3 noting period of high volume and acuity in the emergency department awaiting bed availability. Review was performed of triage nursing notes and vital signs. I did review pertinent previous visits and patient history. A thorough history and physical examination was performed. Patient presents to us today for admission to the hospital by the orthopedic office. In speaking to our charge nurse, direct admission was not possible noting code flow/census therefore patient presents to the emergency department. On my assessment there is a dressing and boot to the left lower extremity. No evidence of systemic illness. She is clinically well- appearing and nontoxic. Left lower extremity well-perfused. Patient notes there is concern for infection and was referred here for IV antibiotics and possible procedure/debridement of the wounds. Options of care were discussed with the patient. IV access had already been established and laboratory studies and medication was already ordered by orthopedics pending admission. IV antibiotics and pain medication has already been ordered by orthopedics. Laboratory studies here reveal no leukocytosis or concerning anemia. No emergent metabolic disturbance. At 12:44 PM on 10/19/2023 I did speak with orthopedics. Plan is for admission at this time. They had just placed a new dressing on the leg and obtained wound cultures. We will keep the dressing in place at this time pending further evaluation by the orthopedic team. Please refer to further documentation regarding her stay. GCS: 15 In the evaluation and treatment of this patient the following differential diagnoses were entertained: Postoperative infection, wound dehiscence, neurovascular compromise, wound irritation, necrosis, among others. Impression & Plan Acute pain of left lower extremity, Post-operative state Discharge Plan Visit Data Chief Complaint: Wound Stated Complaint: WOUND LEFT LOWER LEG, REF BY ORTHO ED Provider: Herb Mai ED Midlevel Provider: Jacobo Stuart Discharge Problem: Acute pain of left lower extremity, Post-operative state Patient Disposition: Admitted As Inpatient Condition: Good Forms Stand Alone Forms: My [facility], Important Visit Information Prescriptions Prescriptions: No Action escitalopram oxalate 20 mg tablet 20 mg PO DAILY fluticasone propionate 50 mcg/actuation spray,suspension 2 sprays INTNAS DAILY cetirizine [Zyrtec] 10 mg tablet 10 mg PO DAILY PRN (Reason: Allergy Symptoms) cholecalciferol (vitamin D3) 25 mcg (1,000 unit) Capsule 25 mcg PO DAILY 42 Days Qty: 42 0RF Eliquis 2.5 mg Tablet 2.5 mg PO BID 14 Days Qty: 28 1RF Nexplanon 68 mg Implant 68 mg SUBDERMAL UD acetaminophen [Tylenol Extra Strength] 500 mg tablet 1,000 mg PO Q8H PRN (Reason: pain or fever) Rx Instructions: over the counter Referrals Referrals: Leslie Fuentes DO [Primary Care Provider] -
[2023-10-19 12:25] LABS: Albumin Globulin Ratio 1.4 (0.9-2); Albumin Level 4.4 gm/dl (3.4-5.0); BUN Creatinine Ratio 17.6 (10-20); Bilirubin,Total 0.5 mg/dl (0.2-1.0); Calcium 9.6 mg/dl (8.6-10.3); Creatinine Clr Calc Pharmacy 97.6 ml/min; Est GFR (African American) 119.1 ml/min; Est GFR (Non-African American) 102.8 ml/min; Globulin 3.1 gm/dl (2.5-4.0); Total Protein 7.5 gm/dl (6.0-8.3)
--- NOTE | 2023-10-19 12:42 | History & Physical Report ---
Date of Service October 19, 2023 Assessment & Plan (1) Postoperative wound infection: Plan Findings and plan were discussed with the patient. Patient was seen in conjunction with Dr. Molina. She will be admitted to the hospital under our service for IV antibiotics and further management for treatment of postoperative wound infection. Dr. Amaya is on vacation today but will be back tomorrow. He was updated via [place] text. Cultures were taken today from the tibial wound and sent for anaerobic and aerobic cultures and Gram stain. Patient will remain n.p.o. at this time and hold Eliquis for potential surgery for irrigation and debridement. This likely will not be done today. Will discuss with Dr. Molina and Dr. Amaya and if confirmed no need for surgery today the patient will be allowed to eat and will make her NPO midnight tonight. Patient will be started on IV vancomycin and IV Zosyn upon admission. Pharmacy consult will be placed. We will get baseline CBC, BMP, ESR and CRP. She will be nonweightbearing. Will continue to follow cultures. History of Present Illness Chief Complaint: left leg post op wound infection Primary Care Provider: Leslie Fuentes DO Rosina is a 37-year-old female status post open reduction internal fixation distal tibia and fibula fractures left leg with Dr. Amaya on 09/23/2023. Patient has been toe-touch weightbearing in a boot. She was seen 2 weeks ago and was doing well at that time. Her to were removed and Steri-Strips were applied. She was to see Dr. Amaya tomorrow for her regular postop check. She presented to our office this morning with concerns of a wound infection. She says that she has not noticed anything until yesterday when she took a picture and saw that there was some drainage, redness and an odor. She has had difficulty seeing her incision and did not notice anything until yesterday. She says the redness also developed yesterday. She does not have any fevers or chills. She is currently on Eliquis for DVT prevention and she took this this morning. She last ate around 8:00 this morning. She has not had a significant increase in her pain. She rates it a 2 out of 10 currently. She has not noticed any significant increase in swelling. Allergies Allergy/AdvReac Type Severity Reaction Status Date / Time gabapentin Allergy Unknown RASH Verified 09/23/23 11:55 Iodinated Contrast Media Allergy Unknown RASH Verified 09/23/23 11:55 Sulfa (Sulfonamide Allergy Unknown RASH Verified 09/23/23 11:55 Antibiotics) AJ Allergy Unknown rash Uncoded 10/14/17 19:48 Home Medications Medication Instructions Recorded Confirmed Type cetirizine 10 mg tablet (Zyrtec) 10 mg PO DAILY PRN 07/24/19 History escitalopram oxalate 20 mg tablet 20 mg PO DAILY 07/24/19 History fluticasone propionate 50 2 sprays intranasal DAILY 07/24/19 History mcg/actuation nasal spray,suspension levonorgestrel 17.5 mcg/24 hrs intrauterine 07/24/19 History (5yrs) 19.5mg intrauterine device (Kyleena) tizanidine 4 mg capsule 2 mg PO BID 07/24/19 History acetaminophen 500 mg tablet 1,000 mg (2 x 500 mg) PO Q8H 30 09/24/23 Rx (Tylenol Extra Strength) days #180 tabs apixaban 2.5 mg tablet (Eliquis) 2.5 mg PO BID 14 days #28 tabs 09/24/23 Rx cholecalciferol (vitamin D3) 25 25 mcg PO DAILY 42 days #42 caps 09/24/23 Rx mcg (1,000 unit) capsule docusate sodium 100 mg capsule 100 mg PO BID #30 caps 09/24/23 Rx oxycodone 5 mg tablet 5 - 10 mg (1 - 2 x 5 mg) PO Q4H 09/24/23 Rx PRN pain #18 tabs Past Med/Surg History Medical History Migraine without aura and without status migrainosus, not intractable Allergic rhinitis due to other allergen Psoriasis Raynaud's disease without gangrene Sicca syndrome with keratoconjunctivitis Surgical History H/O wisdom tooth extraction S/P spinal surgery Family History Mother Arthritis Raynauds syndrome Brother Scoliosis Social History (Reviewed 10/19/23 @ 12:32 by VIKTOR Peoples Smoking Status: Never smoker Hx Alcohol Use: No Hx Substance Use: No Preferred Language: Tajik Communication Ability: Effective Human Service Coordinator Required: No Beliefs That Will Affect Care: None Current Living Situation: Spouse Feels Safe at Home: Yes Assistive Devices: None Review of Systems Review of Systems: Patient denies any fevers, chills, sweats Physical Exam Physical Exam: General: Patient is seated on the exam table in no acute distress Left lower extremity: Patient had moderate edema, erythema and swelling noted over her distal left extremity. Erythema was marked. There was an odor noted. Steri-Strips were removed. Some milky drainage/tissue was able to be wiped away from the incisions. Slight dehiscence noted over both wounds. Some black escar noted and this was debrided by Dr Molina. There was no pus able to be actively expressed from incisions. She is able to wiggle all of her digits and slightly dorsiflex and plantarflex her foot. Sensation is intact distally. Heart: RRR, +S1, +S2 Lung: no wheezing, LCTAB Results & Data Results & Data Vital Signs (Past 12 Hours) Vital Signs Temp Pulse Resp BP Pulse Ox 10/19/23 11:05 36.7 C 100 H 18 131/94 97
[2023-10-19] MEDS: PIPER/TAZO 4.5g in D5W MINI-B 100 ML IV ONE (13:41)
[2023-10-19] MEDS: VANCOMYCIN HCL 1,750 MG in SODIUM CHLORIDE 0.9% 500 ML IV SCH (14:21)
--- NOTE | 2023-10-19 14:57 | Communication Note ---
Date of Service: October 19, 2023 Reviewed patient's labs. White count is normal. ESR is elevated at 31. CRP is still pending. Cultures are still pending. Patient is currently afebrile. I spoke with patient and she reports that she is still feeling good. There are no plans for any surgery today. N.p.o. order was changed to midnight tonight and the patient will be allowed to eat. Continue to hold her Eliquis. We will reevaluate her in the morning.
[2023-10-19] MEDS: SODIUM CHLORIDE 0.9% 1,000 ML IV SCH (15:01)
[2023-10-19 16:09] LABS: C Reactive Protein 0.9 mg/dl (0-0.5)
--- NOTE | 2023-10-19 19:14 | XRay Report ---
XR tibia fibula LT 2V CLINICAL HISTORY: pain COMPARISON: Left tibia and fibula radiographs September 23, 2023. Fluoroscopic images of the left tibia a nd fibula September 23, 2023. FINDINGS: There are stable postoperative findings following internal fixation of the left tibial and fibular fractures when compared to intraoperative fluoroscopic images of September 23, 2023. Hardware is intact. Fracture alignment is near anatomic. Fibular tip fracture is again noted. Talar dome is inta ct. Soft tissue swelling is noted. There are no unexpected radiopaque foreign bodies. IMPRESSION: Expected postoperative findings following left tibial and fibular internal fixations. Jurgen sanabria intact. ACT 112: Negative or not required by law. Electronically signed by: Mikel Artis M.D. 10/19/2023 7:13 PM
[2023-10-19] MEDS: tiZANidine HCL 4 MG TABLET PO SCH (20:14)
[2023-10-19] MEDS: PIPERACILLIN/TAZOBACTAM 4.5 GM in DEXTROSE 5% MINI-B 100 ML IV SCH (20:16)
--- OUTSIDE RECORDS SUMMARY | 2023-10-19 20:52 | External Medical Summary | Continuity of Care Document ---
Author Name Unknown Organization [place] [id number] Address [address] [place] [phone] Care Team Providers Care Reservoir Engineering Manager Name Role Phone Leslie Fuentes Primary Care Physician [phone] [facility]counter [id number] Date(s): 09/30/23 - 09/30/23 [facility] [address] [place] [id number] [facility] Medicine [address] [address] Encounter Diagnosis S/P ORIF (open reduction internal fixation) fracture(Discharge Diagnosis) - 09/30/23 Tibia/fibula fracture, shaft(Discharge Diagnosis) - 09/30/23 Discharge Disposition: Home or Self Care Attending Physician: SHREYAS Vaughan [place] Allergies, Adverse Reactions, Alerts Substance Reaction Severity Status gabapentin unknown Mild Active Bactrim unknown Mild Active Nickel unknown Mild Active Medications Eliquis 2.5 mg oral tablet Start: 09/30/23 10:09:00 EDT Start Date: 09/30/23 Status: Ordered escitalopram 10 mg oral tablet Start: 09/30/23 10:09:00 EDT, 1 tab, PO, Daily Start Date: 09/30/23 Status: Ordered oxyCODONE 5 mg oral tablet Start: 09/29/23 12:05:00 EDT, 5 mg =, PO, q4h, Disp# 18 tab, Refills: 0, Note to Pharmacy: initial therpay, PRN: as needed for pain, Pharmacy: [id number] Start Date: 09/29/23 Status: Ordered VITAMIN D3 1,000 UNIT SOFTGEL VITAMIN D3 1,000 UNIT SOFTGEL, TAKE 1 CAPSULE BY MOUTH EVERY DAY Start Date: 09/30/23 Status: Ordered Zofran 4 mg oral tablet Start: 09/29/23 15:15:00 EDT, 1 tab, PO, tid, Disp# 20 tab, PRN: as needed for nausea/vomiting, Pharmacy: [id number] Start Date: 09/29/23 Status: Ordered Mental Status 09/30/23 Barriers to Learning one year None evide nt Mandatory Health Literacy Documentation Yes Health Literacy Communication Barriers N ever Primary Language Spanish Problem List No Chronic Problems Diagnosis Diagnosis Type Effective Dates Health Status Cl inical Service Informant S/P ORIF (open reduction internal fixation) fracture Discharge Diagnosis 09/30/23 Tibia/fibula fracture, shaft Discharge Diagnosis 09/30/23 Non-Specified Procedures Procedure Date Related Diagnosis Body Site Status Ankle 1 Completed Scoliosis 2 Completed 1ORIF 09/23/23 Left 2sx 1998 Social History Social History Type Response Smoking Status Never smoked cigaret arlene Sex Female Patient Care team information Care Team Personnel Name: DO Fuentes Carey K Position: Referring DIRECT Member Role: Primary Care Provider Address: Address: [address] [place] [id number] [place]
--- OUTSIDE RECORDS SUMMARY | 2023-10-19 20:52 | External Medical Summary | Continuity of Care Document ---
Author Name Unknown Organization [place] [id number] Address [address] [place] [phone] Care Team Providers Care Hydraulic Technician Name Role Phone ChidimaribethLeslie Primary Care Physician [phone] [id number] Date[facility]s): 10/06/23 - 10/06/[address] [facility] [address] [place] [address] [facility] [address] [address] Encounter Diagnosis S/P orthopedic surgery, follow-up exam(Discharge Diagnosis) - 10/06/23 Discharge Disposition: Home or Self Care Attending [...] PRN: as needed for pain, Pharmacy: [id number] Start Date: 09/29/23 Status: Ordered VITAMIN D3 1,000 UNIT SOFTGEL VITAMIN D3 1,000 UNIT SOFTGEL, TAKE 1 CAPSULE BY MOUTH EVERY DAY Start Date: 09/30/23 Status: Ordered Zofran 4 mg oral tablet Start: 09/29/23 15:15:00 EDT, 1 tab, PO, tid, Disp# 20 tab, PRN: as needed for nausea/vomiting, Pharmacy: [id number] Start Date: 09/29/23 Status: Ordered Mental Status 10/06/23 Barriers to Learning one year None evide nt Mandatory Health Literacy Documentation Yes Health Literacy Communication Barriers N ever Primary Language Peruvian Problem List Condition Confirmation Course Effective Dates Status Health St at[facility] Informant S/P ORIF (open reduction internal fixation) fracture Confirmed Active Diagnosis Diagnosis Type Effective Dates Health Status Clinical Service Informant S/P orthopedic surgery, follow-up exam Discharge Diagnosis 10/06/23 Non-Specified Procedures Procedure Date Related Diagnosis Body Site Status Ankle 1 Completed Scoliosis 2 Completed 1ORIF 09/23/23 Left 2sx 1997 Vital Signs Most recent to oldest [Reference Range]: 1 Height 159.9 cm (10/06/23 10:50 AM) Patient Weight 72.4 kg (10/06/23 10:50 AM) Body Mass Index 28.32 kg/m2 (10/06/23 10:50 AM) Social History Social History Type Response Smoking Status Never smoked cigaret arlene Sex Female Patient Care team information Care Team Personnel Name: DO Fuentes Carey K Position: Referring DIRECT Member Role: Primary Care Provider Address: Address: [address] [place] [address]
[2023-10-19] MEDS: VANCOMYCIN HCL 1,000 MG in SODIUM CHLORIDE 0.9% 250 ML IV SCH (23:39)
[2023-10-20] MEDS: DOCUSATE SODIUM 100 MG CAP PO SCH (07:49)
[2023-10-20] MEDS: CHOLECALCIFEROL 25 MCG (1000 UNITS) TAB PO SCH (07:50)
[2023-10-20] MEDS: ESCITALOPRAM OXALATE 20 MG TAB PO SCH (07:50)
[2023-10-20] MEDS: FLUTICASONE PROPIONATE NA SPR 16 GM BTL NAE SCH (07:50)
--- NOTE | 2023-10-20 09:26 | Pharmacy Report ---
Pharmacy PK ABX Note - Date of Service October 20, 2023 - Assessment and Plan Assessment 37 year old F started on Vancomycin yesterday for treatment of Left leg wound infection post-op. Pertinent microbiologic data includes: L leg wound culture pending. Today is day #2 of antimicrobial therapy. Plan Vancomycin * Loading dose: 1750 mg IV x 1 given yesterday at 14:21. * Maintenance dose: 1000 mg IV every 12 hours * Regimen is predicted to achieve target AUC/FERNANDEZ of 400-600 mg/L.hr * Random level ordered for: 10/21/23 with AM labs Pharmacy will continue to follow and will adjust dose/frequency as necessary. Thank you. Pharmacy has transitioned to AUC monitoring for vancomycin. AUC/FERNANDEZ is the preferred PK/PD target and is associated with decreased risk of nephrotoxicity compared to traditional trough targets.
--- NOTE | 2023-10-20 09:42 | Orthopedic Progress Note ---
Date of Service October 20, 2023 Assessment & Plan (1) Postoperative wound infection: Plan: The patient was educated regarding today's findings. Her leg was rewrapped using Adaptic, gauze, and Kerlix. Her compression sleeve was reapplied. Continue with ice and elevation. She may eat today. Possible operating room tomorrow for revision of her wounds as well as exploration. The case was booked for the OR. She will be n.p.o. after midnight. Continue the IV antibiotics. Written consent will be obtained later today or tomorrow if necessary. Continue to follow micro Admission and Anticipated Discharge Date Admission Date: October 19, 2023 Supervising Physician Co-Signing Physician Notes I, Dr. Amaya, saw and examined the patient. I discussed the management with my PA. I reviewed my PAs note and agree with the documented findings and attest to completing the substantive portion of medical decision making and plan of care I developed. Subjective This 37 year old female is seen today in her room. She has a known postoperative infection and wound dehiscence in her left ankle from previous ORIF, took Eliquis yesterday am. She states she is feeling pretty well this morning. She denies any numbness or tingling. No fevers. She has been receivi ng her IV antibiotics. She is wondering whether she will go to the operating room today. Physical Exam Physical Exam: General: Well-developed, well-nourished, young female, in no acute distress. Laying in bed. Alert and oriented. Skin: Warm and dry with good turgor. No rashes. The patient has a surgical wrap on her left lower leg. Upon removal, she has erythema present over the dorsum of her foot. There is warmth present laterally. This extends to the lower leg. Area of redness previously had a line of demarcation. It has receded significantly from the initial line. She continues to have some edema of the foot and lower leg. Her surgical wounds have an eschar present with widening, unchanged. There is no purulence. Nothing is expressible. The leg overall looks much better than yesterday. Musculoskeletal: The patient has intact motor function of her hip, knee, ankle, and toes. She is able to set her quad and perform a straight leg raise. No significant increase in pain with plantarflexion and dorsiflexion of the ankle. Neurologic: Gross sensation is intact across the left leg and foot by soft touch. Peripheral pulses are 2+. Results & Data Vital Signs (Past 12 Hours) Vital Signs Temp Pulse Resp BP Pulse Ox O2 Del Method 10/20/23 08:16 Room Air 10/20/23 08:14 36.8 C 73 18 121/87 97 Room Air 10/19/23 21:52 36.9 C 99 H 18 149/91 H 96 Room Air Laboratory Results CBC obtained yesterday morning shows a white count of 7.19. H&H of 12.3 and 37.1. Platelets normal at 332,000. No significant differential. Sed rate yesterday was 31. C-reactive protein was elevated at 0.90. Renal panel was entirely unremarkable. Spec: [id number] Collected: 10/19/23-1100 Received: 10/19/23-[address]: Raegan Vaughan PA-C Source: Leg,Left OV Order: Ordered: Aer/Gianna Cult/Sm Procedure Result Verified Site Gram Stain Final 10/20/23-0820 Gram Stain Result No WBCs Seen, No Organisms Seen Aero/Gianna Cult Preliminary 10/20/23-1131 Pin-point growth present, reincubating. Name: ROSALIA DILLARDRebecca Thoren : 1985 PAGE 1 Printed: 10/20/23 7471 END OF REPORT Diagnostic Findings XR tibia fibula LT 2V CLINICAL HISTORY: pain COMPARISON: Left tibia and fibula radiographs September 23, 2023. Fluoroscopic images of the left tibia and fibula September 23, 2023. FINDINGS: There are stable postoperative findings following internal fixation of the left tibial and fibular fractures when compared to intraoperative fluoroscopic images of September 23, 2023. Hardware is intact. Fracture alignment is near anatomic. Fibular tip fracture is again noted. Talar dome is intact. Soft tissue swelling is noted. There are no unexpected radiopaque foreign bodies. IMPRESSION: Expected postoperative findings following left tibial and fibular internal fixations. Hardware intact. ACT 112: Negative or not required by law. Electronically signed by: Mikel Artis M.D. 10/19/2023 7:13 PM
[2023-10-21 06:16] LABS: C Reactive Protein 0.73 mg/dl (0-0.5); Est GFR (African American) 97.9 ml/min; Est GFR (Non-African American) 84.5 ml/min
--- NOTE | 2023-10-21 07:57 | Anesthesiology Consultation ---
Date of Service October 21, 2023 Assessment & Plan Chart Review Chart Review: Acceptable Risk for Surgery and Patient NOT seen in Pre Admission Testing History Surgery Operation Date: 10/21/23 13:00 Proposed Procedures p Left Ankle Debridement and Wound Dehiscence - James Rebecca Amaya MD Height/Weight Height: 5 ft 3 in Weight: 71.4 kg Allergies Allergy/AdvReac Type Severity Reaction Status Date / Time gabapentin Allergy Unknown RASH Verified 10/19/23 13:02 Iodinated Contrast Media Allergy Unknown RASH Verified 10/19/23 13:02 nickel Allergy Unknown Rash Unverified 10/19/23 13:02 Sulfa (Sulfonamide Allergy Unknown RASH Verified 10/19/23 13:02 Antibiotics) Medications Home Medications Medication Instructions Recorded Confirmed Last Taken cetirizine 10 mg tablet (Zyrtec) 10 mg PO DAILY PRN Allergy Symptoms 07/24/19 10/19/23 Unknown escitalopram oxalate 20 mg tablet 20 mg PO DAILY 07/24/19 10/19/23 10/19/23 fluticasone propionate 50 2 sprays intranasal DAILY 07/24/19 10/19/23 Unknown mcg/actuation nasal spray,suspension apixaban 2.5 mg tablet (Eliquis) 2.5 mg PO BID 14 days #28 tabs 09/24/23 10/19/23 10/19/23 cholecalciferol (vitamin D3) 25 25 mcg PO DAILY 42 days #42 caps 09/24/23 10/19/23 10/19/23 mcg (1,000 unit) capsule acetaminophen 500 mg tablet 1,000 mg PO Q8H PRN pain or fever 10/19/23 10/19/23 Unknown (Tylenol Extra Strength) etonogestrel 68 mg subdermal 68 mg subdermal UD 10/19/23 10/19/23 Unknown implant (Nexplanon) Active Medications Generic Name Dose Route Start Last Admin Trade Name Freq PRN Reason Stop Dose Admin Docusate Sodium 100 mg 10/20/23 09:00 10/21/23 07:56 Docusate Sodium 100 Mg Cap PO 11/19/23 08:59 Not Given BID MARTINE Escitalopram Oxalate 20 mg 10/20/23 09:00 10/21/23 07:53 Escitalopram Oxalate 20 Mg Tab PO 11/19/23 08:59 20 mg DAILY MARTINE Administration Fluticasone Propionate 2 sprays 10/20/23 09:00 10/21/23 07:56 Fluticasone Propionate Na Spr 16 Gm Btl ROMAN 11/19/23 08:59 Not Given DAILY MARTINE Vancomycin HCl 1,000 mg/ 270 mls @ 200 mls/hr 10/20/23 00:00 10/21/23 02:21 Sodium Chloride IV 10/27/23 00:00 Infused Q12H MARTINE Infusion Protocol Piperacillin Sod/Tazobactam 100 mls @ 25 mls/hr 10/19/23 20:00 10/21/23 03:50 Sod 4.5 gm/ Dextrose IV 10/26/23 19:59 25 mls/hr Q8H MARTINE Administration Protocol Tizanidine HCl 2 mg 10/19/23 21:00 10/21/23 07:54 Tizanidine Hcl 4 Mg Tablet PO 11/18/23 20:59 2 mg BID MARTINE Administration Vitamin D 25 mcg 10/20/23 09:00 10/21/23 07:54 Cholecalciferol 25 Mcg (1000 Units) Tab PO 11/19/23 08:59 25 mcg DAILY MARTINE Administration Past Medical History Medical History Migraine without aura and without status migrainosus, not intractable Allergic rhinitis due to other allergen Psoriasis Raynaud's disease without gangrene Sicca syndrome with keratoconjunctivitis Past Family History Family History Mother Arthritis Raynauds syndrome Brother Scoliosis Past Surgical History Surgical History H/O wisdom tooth extraction S/P spinal surgery Social History Smoking Status: Never smoker Hx Alcohol Use: No Hx Substance Use: No Physical Exam Vital Signs Last Vital Signs Temp 36.9 C 10/21/23 07:34 Pulse 87 10/21/23 07:34 Resp 16 10/21/23 07:34 BP 126/86 10/21/23 07:34 Pulse Ox 99 10/21/23 07:34 O2 Del Method Room Air 10/21/23 07:34 Testing Laboratory Results 10/19/23 11:50 10/21/23 05:46
--- NOTE | 2023-10-21 10:05 | Orthopedic Progress Note ---
Date of Service October 21, 2023 Assessment & Plan (1) Postoperative wound infection: Plan: The patient was educated regarding today's findings. Her leg was rewrapped using Adaptic, gauze. ABD pads were placed over the incision before lightly wrapping with the Kerlex. Her compression sleeve was reapplied. Continue with ice and elevation. She is currently n.p.o Possible operating room tomorrow for revision of her wounds as well as exploration. Continue IV antibiotics (vancomycin and Zosyn) Plan consent form was placed in the patient's chart if she does need to go to the OR Admission and Anticipated Discharge Date Admission Date: October 19, 2023 Supervising Physician Co-Signing Physician Notes I, Dr. Amaya, saw and examined the patient. I discussed the management with my PA. I reviewed my PAs note and agree with the documented findings and attest to completing the substantive portion of medical decision making and plan of care I developed. Will allow to eat, no OR today. Awaiting C&S to switch to oral antibiotics. Subjective This 37 year old female is seen today in her room this AM. Patient is currently receiving vancomycin and Zosyn. I did take down her dressing today and applied a new 1. She states she really does not have any pain in her left foot or ankle. She denies chest pain, shortness of breath, fever, chills, sweats, nausea, vomiting, diarrhea or difficulty voiding. She also has no complaint of numbness or tingling in the right lower extremity. When I did take the dressing down she states that it looks much better today than it did yesterday. The area is marked for her cellulitic infection show no signs of redness or significant swelling. She hopes to avoid surgery if at all possible. Review of Systems Review of Systems: All systems reviewed & are unremarkable except as noted in Subjective Physical Exam Physical Exam: Left ankle: Dressings were removed. Surgical incision sites are completely scabbed over with no palpable fluctuance or drainage. There is no noted drainage on her dressings. The area is marked with a skin marker for the cellulitis a tract to show no signs of erythema. There is no warmth. There is some mild edema. There is no open dehiscence. Patient is able to perform active straight leg raise test. She is able to actively dorsi and plantarflex her foot. She is able to flex her knee beyond 90 degrees actively. Her quad strength is 4+ out of 5. Her peripheral pulses are easily palpable. She is neurovascularly intact in left lower extremity. Results & Data Vital Signs (Past 12 Hours) Vital Signs Temp Pulse Resp BP Pulse Ox O2 Del Method 10/21/23 07:34 36.9 C 87 16 126/86 99 Room Air Diagnostic Findings Laboratory Results WBC 7.19 K/ul (4.8-10.8) 10/19/23 11:50 RBC 4.31 M/uL (4.20-5.40) 10/19/23 11:50 Hgb 12.3 g/dl (12.0-16.0) 10/19/23 11:50 Hct 37.1 % (37.0-47.0) 10/19/23 11:50 MCV 86.1 fL (80.0-100.0) 10/19/23 11:50 MCH 28.5 pg (25.0-34.0) 10/19/23 11:50 MCHC 33.2 g/dL (32.0-36.0) 10/19/23 11:50 RDW Std Deviation 36.8 fL (36.4-46.3) 10/19/23 11:50 RDW Coeff of Kayla 11.7 % (11.5-14.5) 10/19/23 11:50 Plt Count 332 K/uL (130-400) 10/19/23 11:50 MPV 9.9 fL (9.4-12.4) 10/19/23 11:50 Immature Gran % (Auto) 0.4 % 10/19/23 11:50 Neut % (Auto) 70.8 % 10/19/23 11:50 Lymph % (Auto) 20.2 % 10/19/23 11:50 Hettinger % (Auto) 7.5 % 10/19/23 11:50 Eos % (Auto) 0.8 % 10/19/23 11:50 Baso % (Auto) 0.3 % 10/19/23 11:50 Neut # (Auto) 5.09 K/uL (1.40-6.50) 10/19/23 11:50 Lymph # (Auto) 1.45 K/uL (1.20-3.40) 10/19/23 11:50 Hettinger # (Auto) 0.54 K/uL (0.11-0.59) 10/19/23 11:50 Eos # (Auto) 0.06 K/uL (0.00-0.50) 10/19/23 11:50 Baso # (Auto) 0.02 K/uL (0.00-0.20) 10/19/23 11:50 Immature Gran # (Auto) 0.03 K/uL (0.01-0.20) 10/19/23 11:50 ESR 28 mm/hr (0-20) H 10/21/23 05:46 Sodium 138 mmol/L (136-145) 10/19/23 11:50 Potassium 4.0 mmol/L (3.5-5.1) 10/19/23 11:50 Chloride 107 mmol/L (98-107) 10/19/23 11:50 Carbon Dioxide 25 mmol/L (21-32) 10/19/23 11:50 Anion Gap 6 (3-11) 10/19/23 11:50 BUN 13 mg/dl (6-23) 10/19/23 11:50 Creatinine 0.87 mg/dl (0.6-1.2) 10/21/23 05:46 Est Cr Clr Drug Dosing 83.0 ml/min 10/21/23 05:46 Est GFR ( Amer) 97.9 ml/min 10/21/23 05:46 Est GFR (Non-Af Amer) 84.5 ml/min 10/21/23 05:46 BUN/Creatinine Ratio 17.6 (10-20) 10/19/23 11:50 Glucose 91 mg/dl (70-99(Fasting)) 10/19/23 11:50 Calcium 9.6 mg/dl (8.6-10.3) 10/19/23 11:50 Total Bilirubin 0.5 mg/dl (0.2-1.0) 10/19/23 11:50 AST 22 U/L (13-39) 10/19/23 11:50 ALT 25 U/L (7-52) 10/19/23 11:50 Alkaline Phosphatase 122 U/L (34-104) H 10/19/23 11:50 C-Reactive Protein 0.73 mg/dl (0-0.5) H 10/21/23 05:46 Total Protein 7.5 gm/dl (6.0-8.3) 10/19/23 11:50 Albumin 4.4 gm/dl (3.4-5.0) 10/19/23 11:50 Globulin 3.1 gm/dl (2.5-4.0) 10/19/23 11:50 Albumin/Globulin Ratio 1.4 (0.9-2) 10/19/23 11:50 Random Vancomycin 17.6 mcg/ml (10-20) 10/21/23 05:48 Impressions Tibia/Fibula X-Ray 10/19/23 17:12 XR tibia fibula LT 2V CLINICAL HISTORY: pain COMPARISON: Left tibia and fibula radiographs September 23, 2023. Fluoroscopic images of the left tibia and fibula September 23, 2023. FINDINGS: There are stable postoperative findings following internal fixation of the left tibial and fibular fractures when compared to intraoperative fluoroscopic images of September 23, 2023. Hardware is intact. Fracture alignment is near anatomic. Fibular tip fracture is again noted. Talar dome is intact. Soft tissue swelling is noted. There are no unexpected radiopaque foreign bodies. IMPRESSION: Expected postoperative findings following left tibial and fibular internal fixations. Hardware intact. ACT 112: Negative or not required by law. Electronically signed by: Mikel Artis M.D. 10/19/2023 7:13 PM
[2023-10-21] MEDS: oxyCODONE/ACETAMINOPHEN 5mg/325mg TAB PO PRN (18:30)
[2023-10-21] MEDS ORDERED: IBUPROFEN 600 MG TAB PO PRN (20:41)
[2023-10-21] MEDS: KETOROLAC TROMETHAMINE 15 MG/ML VIAL IV PRN (21:29)
[2023-10-22] MEDS: ONDANSETRON INJ 2 MG/ML 2 ML VIAL IV PRN (04:58)
[2023-10-22 07:15] LABS: Creatinine Clr Calc Pharmacy 93.8 ml/min; Est GFR (African American) 113.5 ml/min; Est GFR (Non-African American) 97.9 ml/min
--- NOTE | 2023-10-22 09:52 | Orthopedic Progress Note ---
Date of Service October 22, 2023 Assessment & Plan (1) Postoperative wound infection: Plan: Nearly 1 month s/p ORIF Left Tib-fib with cellulitis, improving on IV Abx. The patient was educated regarding today's findings, new micro was not back with evaluating the patient, but did discuss plan. Her leg was rewrapped using Adaptic, gauze, ABD pads, and wrapping with the Kerlex. Her compression sleeve was reapplied. Continue with ice and elevation. Regular diet After reviewing Micro, will switch from IV antibiotics (vancomycin and Zosyn) to oral Keflex 500 mg QID + Doxycycline 100 mg BID for 5 days. Maybe OOB to chair. Continue TTWB until cellulitis resoles and Abx completion. Will re-evaluate for potential d/c home tomorrow, if tolerating PO Abx and LLE continues to improve. Admission and Anticipated Discharge Date Admission Date: October 19, 2023 Subjective No complaints Physical Exam Physical Exam: LLE: Skin: Warm and dry with good turgor. No rashes. Significantly decreased swelling. Area of redness previously had a line of demarcation has nearly completely resolved and is only adjacent to the incisions. Her surgical wounds have widened scabbing, unchanged. There is no purulence. Nothing is expressible. The leg overall looks much improved. Musculoskeletal: The patient has intact motor function of her hip, knee, ankle, and toes. She is able to set her quad and perform a straight leg raise. No pain with plantarflexion and dorsiflexion of the ankle. Gross sensation is intact to light touch. Peripheral pulses are 2+. Results & Data Vital Signs (Past 12 Hours) Vital Signs Temp Pulse Resp BP Pulse Ox O2 Del Method 10/22/23 00:20 36.5 C 74 16 106/72 98 Room Air Laboratory Results Spec: [id number] Collected: 10/19/23-1099 Received: 10/19/23-[address]: Raegan Vaughan PA-C Source: Leg,Left OV Order: Ordered: Aer/Gianna Cult/Sm Procedure Result Verified Site Gram Stain Final 10/20/23-819 Gram Stain Result No WBCs Seen, No Organisms Seen Aero/Gianna Cult Preliminary 10/22/23-928 High counts mixed probable skin microbiota. 10/22/23 Range/Units 06:02 Creatinine 0.77 (0.6-1.2) mg/dl Est Cr Clr Drug Dosing 93.8 ml/min Est GFR ( Amer) 113.5 ml/min Est GFR (Non-Af Amer) 97.9 ml/min
[2023-10-22] MEDS: DOXYCYCLINE HYCLATE 100 MG CAP PO SCH (10:54)
[2023-10-22] MEDS: cephALEXin 500 MG CAP PO SCH (13:13)
[2023-10-23 06:59] LABS: Creatinine Clr Calc Pharmacy 93.8 ml/min; Est GFR (African American) 113.5 ml/min; Est GFR (Non-African American) 97.9 ml/min
--- NOTE | 2023-10-23 09:12 | Orthopedic Progress Note ---
Date of Service October 23, 2023 Assessment & Plan (1) Postoperative wound infection: Plan: Nearly 1 month s/p ORIF Left Tib-fib with cellulitis, switch to oral Abx, continuing to improve. The patient was educated regarding today's findings, new micro was not back with evaluating the patient, but did discuss plan. Her leg was rewrapped using Adaptic, gauze, ABD pads, and wrapping with the Kerlex. Her compression sleeve was reapplied. Continue with ice and elevation. Regular diet After reviewing Micro, switched from IV antibiotics (vancomycin and Zosyn) to oral Keflex 500 mg QID + Doxycycline 100 mg BID for 5 days. Maybe OOB to chair. Continue TTWB until cellulitis resolves and Abx completion. d/c home. Follow up this week for dressing change and wound check. Admission and Anticipated Discharge Date Admission Date: October 19, 2023 Subjective No complaints Physical Exam Physical Exam: LLE: Skin: Warm and dry with good turgor. No rashes. Significantly decreased swelling. Area of redness previously had a line of demarcation has nearly completely resolved and is only adjacent to the incisions. Her surgical wounds have widened scabbing, unchanged. There is no purulence. Nothing is expressible. The leg overall looks much improved. Musculoskeletal: The patient has intact motor function of her hip, knee, ankle, and toes. She is able to set her quad and perform a straight leg raise. No pain with plantarflexion and dorsiflexion of the ankle. Gross sensation is intact to light touch. Peripheral pulses are 2+. Results & Data Vital Signs (Past 12 Hours) Vital Signs Temp Pulse Resp BP BP Pulse Ox O2 Del Method 10/23/23 06:59 36.8 C 68 16 104/70 97 Room Air 10/22/23 22:20 36.5 C 86 18 137/91 98 Room Air
[2023-10-24] MEDS ORDERED: VANCOMYCIN LEVEL ONE (09:30)
--- NOTE | 2023-10-27 11:14 | Discharge Summary ---
Date of Service October 27, 2023 Admission HPI Per Admitting Provider Rosina is a 37-year-old female status post open reduction internal fixation distal tibia and fibula fractures left leg with Dr. Amaya on 09/23/2023. Patient has been toe-touch weightbearing in a boot. She was seen 2 weeks ago and was doing well at that time. Her to were removed and Steri-Strips were applied. She was to see Dr. Amaya tomorrow for her regular postop check. She presented to our office this morning with concerns of a wound infection. She says that she has not noticed anything until yesterday when she took a picture and saw that there was some drainage, redness and an odor. She has had di fficulty seeing her incision and did not notice anything until yesterday. She says the redness also developed yesterday. She does not have any fevers or chills. She is currently on Eliquis for DVT prevention and she took this this morning. She last ate around 8:00 this morning. She has not had a significant increase in her pain. She rates it a 2 out of 10 currently. She has not noticed any significant increase in swelling. Principal Diagnosis post operative wound infection Discharge Exam LLE: Skin: Warm and dry with good turgor. No rashes. Significantly decreased swelling. Area of redness previously had a line of demarcation has nearly completely resolved and is only adjacent to the incisions. Her surgical wounds have widened scabbing, unchanged. There is no purulence. Nothing is expressible. The leg overall looks much improved. Musculoskeletal: The patient has intact motor function of her hip, knee, ankle, and toes. She is able to set her quad and perform a straight leg raise. No pain with plantarflexion and dorsiflexion of the ankle. Gross sensation is intact to light touch. Peripheral pulses are 2+. Discharge Data Allergies Allergy/AdvReac Type Severity Reaction Status Date / Time gabapentin Allergy Unknown RASH Verified 10/19/23 13:02 Iodinated Contrast Media Allergy Unknown RASH Verified 10/19/23 13:02 nickel Allergy Unknown Rash Unverified 10/19/23 13:02 Sulfa (Sulfonamide Allergy Unknown RASH Verified 10/19/23 13:02 Antibiotics) Consultations 10/19/23 12:27 ED Decision to Admit Stat Procedures Performed Operation Date: 10/21/23 13:00 <No data on this case meets the specified criteria> Hospital Course (1) Postoperative wound infection: Nearly 1 month s/p ORIF Left Tib-fib with cellulitis, switch to oral Abx, continuing to improve. The patient was educated regarding today's findings Her leg was rewrapped using Adaptic, gauze, ABD pads, and wrapping with the Kerlex. Her compression sleeve was reapplied. Continue with ice and elevation. Regular diet After reviewing Micro, switched from IV antibiotics (vancomycin and Zosyn) to oral Keflex 500 mg QID + Doxycycline 100 mg BID for 5 days. Maybe OOB to chair. Continue TTWB until cellulitis resolves and Abx completion. D/c home. Follow up this week for dressing change and wound check. Total Time Total Time Spent Total Time Spent (In Minutes): 45 minutes Discharge Plan Discharge Items Patient Disposition: Home - Self-Care Reason For Visit: left foot post-operative wound infection Discharge Diagnosis: same Condition on Discharge: Good Activity: Per Instructions section Driving/Machine Use: Do not drive with boot on Weightbearing Comment: LLE TTWB Non-emergency contact: Surgeon Call non-emergency contact if: you have any medication questions, your symptoms worsen, your pain is not controlled, your temperature is above 101.5, your wound has increased redness, your wound has increased drainage and your wound pain has increased Follow-up/Referrals: Leslie Fuentes DO [Primary Care Provider] - Diet: Regular Addtl Attending Provider Instructions: -Toe touch weight bearing on operative extremity with crutches -ICE/elevate -Antibiotics: Keflex 500 mg QID & Doxycycline 100 mg BID x 4 days -Pain control: Tylenol 100mg every 8 hours as needed -DVT prophylaxis: Aspirin 81mg twice a day -Follow up with [facility] in 1 week as scheduled. Please contact our office with any questions or concerns, Pending Studies at Discharge: No Stand-Alone Forms: My [employer], Smoking Cessation Medications and DC Order Prescriptions: New ondansetron 4 mg tablet,disintegrating 4 mg PO DAILY PRN (Reason: nausea and vomiting) 5 Days Qty: 20 0RF Continued escitalopram oxalate 20 mg tablet 20 mg PO DAILY fluticasone propionate 50 mcg/actuation spray,suspension 2 sprays INTNAS DAILY cetirizine [Zyrtec] 10 mg tablet 10 mg PO DAILY PRN (Reason: Allergy Symptoms) cholecalciferol (vitamin D3) 25 mcg (1,000 unit) Capsule 25 mcg PO DAILY 42 Days Qty: 42 0RF Nexplanon 68 mg Implant 68 mg SUBDERMAL UD acetaminophen [Tylenol Extra Strength] 500 mg tablet 1,000 mg PO Q8H PRN (Reason: pain or fever) Rx Instructions: over the counter Discontinued Eliquis 2.5 mg Tablet 2.5 mg PO BID 14 Days Qty: 28 1RF Discharge Orders: Discharge Order (Routine); Ordered 10/23/23 Ordered By: James Nj/Other Patient Handouts: ED Post Op Wound Check, Infection Admission Data Admit Date/Time: 10/19/23 11:50 Attending Provider: Kiran Molina Admit Provider: Kiran Molina Primary Care Provider: Leslie Fuentes Other Providers: Kiran Molina Other Interventions: Discharge Summary Assessment (RN) Last Done: 10/23/23 10:16
== END 2023-10-23 14:40 | disposition home or self-care (01) | DRG 863 ==
LOC: ED 10:59 → 3W 11:50